=== PATIENT | female | born 1950 | race Caucasian/White ===

== ENCOUNTER 2024-09-14 14:36 | Inpatient (IN) | payer MEDICARE, SELFPAY ==
[2024-09-14] VITALS (11 sets, daily range): BP systolic 94–135; BP diastolic 60–85; BMI 16.8; BMI 15.5
--- NOTE | 2024-09-14 12:45 | EDRN ---
Dr. Hahn in room w/pt.
[2024-09-14] MEDS: SUBLIMAZE 50 MCG IV (12:46)
[2024-09-14 13:07] LABS: % Basophils 0.3 % (0-2); % Eosinophils 0.1 % (0-6); % Immature Granulocytes 0.6 % (0-0.5); % Lymphocytes 4.6 % (20.5-51.1); % Monocytes 4.7 % (1.7-9.3); % Neutrophils 89.7 % (42.2-75.2); Absolute Immature Granulocytes 0.1 10^3/uL (0-0.05); Absolute Lymphocytes 0.7 10^3/uL (1.2-3.4); Absolute Monocytes 0.7 10^3/uL (0.1-0.6); Hematocrit 33.6 % (37.0-47.0); Hemoglobin 11.5 g/dL (12.0-16.0); Mean Corp Hgb Conc. 34.2 g/dL (33.0-37.0); Mean Corpuscular Hgb 33.8 pg (27.0-31.0); Mean Corpuscular Volume 98.8 fL (81.0-99.0); Mean Platelet Volume 8.4 fL (7.4-10.4); Nucleated Red Blood Cells % 0 %; Platelet Count 417 10^3/uL (130-400); Red Cell Dist. Width 12.6 % (11.5-14.5); White Blood Cell Count 15.6 10^3/uL (4.8-10.8)
[2024-09-14 13:19] LABS: ALT (SGPT) 34 U/L (0-35); AST (SGOT) 37 U/L (14-36); Albumin 4.3 g/dl (3.5-5.0); Alkaline Phosphatase 82 U/L (38-126); Blood Urea Nitrogen 36 mg/dl (7-17); Calcium 8.9 mg/dl (8.4-10.2); Carbon Dioxide 25 mmol/L (22-30); Chloride 99 mmol/L (98-107); Glucose 150 mg/dl (70-99); Potassium 3.9 mmol/L (3.5-5.1); Sodium 131 mmol/L (135-145); Total Bilirubin 0.5 mg/dl (0.2-1.3); Total Protein 6.8 g/dl (6.3-8.2); eGFR > 60.00
--- NOTE | 2024-09-14 13:19 | ED.GENMED ---
History of Present Illness
General
Chief Complaint: Fall
Time Seen by Provider: 09/14/24 12:36
History of Present Illness
History of Present Illness:
Patient presents after slip and fall on the ice this morning. States she was on her driveway and did not see the black eyes. She slipped and landed on her left hip and left shoulder. Denies head strike or loss of consciousness. She was able to
stand up and walk inside. Complains of severe pain in the left hip and left shoulder. Denies injuries elsewhere.
Phy Exam
Physical Exam
Physical Exam:
GENERAL APPEARANCE: Frail elderly female in distress from pain
EYES lids/conjunctiva normal
EARS/NOSE/THROAT Mucous membranes moist, uvula midline without oral pharyngeal erythema, exudate or swelling
HEAD/NECK normocephalic atraumatic, neck is supple.
RESPIRATORY respiratory effort normal, speaks in full sentences, no accessory muscle use. Lungs clear to auscultation without rhonchi, wheezes, rales
CARDIAC Regular rate and rhythm, no edema.
ABDOMINAL Soft, ND/NT.
MUSCLES/EXTREMITIES there is swelling and tenderness at the left shoulder with diminished range of motion. She has palpable distal pulses. Sensation is intact throughout the left upper extremity. Distal pulses intact. 5 out of 5 strength
throughout the rest of extremity. Left leg is shortened. There is tenderness at the left hip. No tenderness at the knee or ankle. Palpable pedal pulses. 5 out of 5 dorsi flexion and plantar
SKIN Warm, pink and dry. No rashes
NEUROLOGICAL Speech is clear and appropriate. Normal level of consciousness. 5/5 strength in all extremities.
PSYCH Normal mood and affect. Judgement/competence is appropriate
Course
Orders/Labs/Results
Orders:
Orders
09/14/24 12:36
IV Insert/Care/Rem.- Treatment PRN
09/14/24 12:43
Fentanyl Citrate/Pf [Sublimaze] 50 mcg IV NOW STA
09/14/24 12:44
Fentanyl Citrate/Pf [Sublimaze] 100 mcg .ROUTE .STK-MED ONE
Hip, Left 2-3 Views [CR Hip - LT w/wo Pel 2-3 Vw*] Urgent
Comment:
Reason For Exam: L hip pain
Include a pelvis x-ray?: Yes
Shoulder, Left 2 View CR [CR Shoulder - Left Min 2 View*] Urgent
Comment:
Reason For Exam: fall, injury
09/14/24 12:45
CR Chest Single View Urgent
Reason For Exam: trauma
09/14/24 12:53
Complete Blood Count/With Diff Urgent
Comprehensive Metabolic Panel Urgent
09/14/24 13:23
Sling [Braces/Immobilizers] As Directed
Type of Brace/Immobilizer: Sling
Instructions: LUE
09/14/24 13:43
Electrocardiogram (*1) Urgent
Reason for Study: PreOp
Abnormal Lab Results
09/14/24
12:53
WBC 15.6 H 10^3/uL
(4.8-10.8)
RBC 3.40 L 10^6/uL
(4.20-5.40)
Hgb 11.5 L g/dL
(12.0-16.0)
Hct 33.6 L %
(37.0-47.0)
MCH 33.8 H pg
(27.0-31.0)
Plt Count 417 H 10^3/uL
(130-400)
Abs Immat Gran (auto) 0.1 H 10^3/uL
(0-0.05)
Absolute Neuts (auto) 14.0 H 10^3/uL
(1.4-6.5)
Absolute Lymphs (auto) 0.7 L 10^3/uL
(1.2-3.4)
Absolute Monos (auto) 0.7 H 10^3/uL
(0.1-0.6)
Immature Gran % 0.6 H %
(0-0.5)
Neutrophils % 89.7 H %
(42.2-75.2)
Lymphocytes % 4.6 L %
(20.5-51.1)
Sodium 131 L mmol/L
(135-145)
BUN 36 H mg/dl
(7-17)
Creatinine 0.5 L mg/dL
(0.6-1.0)
Glucose 150 H mg/dl
(70-99)
AST 37 H U/L
(14-36)
09/14/24 12:53
09/14/24 12:53
Vital Signs
Initial and Last Documented VS:
Initial Vital Signs
Temp Pulse Resp BP Pulse Ox
98 F 67 16 114/71 98
09/14/24 12:28 09/14/24 12:28 09/14/24 12:28 09/14/24 12:28 09/14/24 12:28
Last Documented Vital Signs
Temp Pulse Resp BP Pulse Ox
98 F 76 14 123/66 71
09/14/24 12:28 09/14/24 13:45 09/14/24 13:45 09/14/24 13:25 09/14/24 13:30
*Critical Care Note
Total Time (30-74mins, 75-104mins- exclusive of procedures): Not Applicable
ED Attending Note
ED Attending Note
ED Attending Note:
Patient with proximal humerus fracture and hip fracture on the left side after mechanical fall. Closed fractures. Neurovascularly intact. Discussed with orthopedist on-call and admitted to hospitalist.
-
Portions of this chart may have been created with voice recognition software.� Occasional wrong word or��sound alike� substitutions may have occurred due to the inherent limitations of voice recognition software.
Discharge Plan
Departure
Patient Disposition: Admit
Date of Disposition: 09/14/24
Time of Disposition: 13:44
Presentation/result/management discussed w/ accepting MD/DO: Hospitalist
Discharge Problem:
Closed hip fracture, Fracture of proximal end of humerus
Interventions
Interventions:
*General Assessment Last Done: 09/14/24 13:00
ED- Fall Risk Assessment Last Done: 09/14/24 13:00
*ED COVID-19 Vaccine History Last Done: 09/14/24 13:25
ED-Musculoskeletal Assessment Last Done: 09/14/24 13:25
ED- Neurological Assessment Last Done: 09/14/24 13:25
ED-Skin Assessment Last Done: 09/14/24 13:25
Discharge Date and Time
Print Language: FRENCH
--- NOTE | 2024-09-14 13:57 | HPS.HSE ---
Family Physician
-
Family Physician: Nigel Apple
Chief Complaint
-
fall left hip and left shoulder pain
History of Present Illness
73-year-old female who was walking down her driveway this a.m. did not see black ice. She reports slipping and landing on her left hip and shoulder. She denies head injury, LOC. She was able to stand up and walk inside but is having severe pain
in the left hip and shoulder. She denies any other injuries. She spilled hot water 1 week ago on her right hand third ,fourth fingers dorsal aspect that has current scabbed blister castellano
She denies headache, neck pain, blurred vision, fever, chills, chest pain, palpitations, cough, shortness of breath, abdominal pain, nausea, vomiting, diarrhea, urinary symptoms. She has past medical history of active smoker, bilateral wrist
fractures , right hand distal DIP tendon injury as a teen.
Medical History
Past Medical History
Past Medical History: Reports Other
Additional Past Medical History:
Active smoker
History bilateral wrist fracture repairs
History right hand second finger DIP tendon injury
Past Surgical History: Reports Other
Additional Past Surgical History:
History bilateral wrist fracture repairs
Social History
Tobacco: Smoker (1 pack/week)
Alcohol: None
Drug: None
Personal: Single
Living: Alone
Employment: Retired
Family History
Family History: Not pertinent
Allergies / Home Medications
Allergies reflects when Allergies were last updated in [facility].
Home Medications with original date entered in [facility]
Allergy/Medication List:
Allergies
Allergy/AdvReac Type Severity Reaction Status Date / Time
No Known Allergies Allergy Unverified 09/14/24 12:26
Home Medications
[id number]-[id number] 250 mg-250 mg-65 mg tablet (Excedrin Migraine) 2 tab PO BIDPRN PRN headache/mild pain 09/14/24
Review of Systems
-
History Source: Patient
A 12 point ROS was completed and negative except as noted: Yes
Constitutional: Denies Fever or Chills
EENT: Denies Sore Throat or Runny Nose
Respiratory: Denies Cough or Trouble Breathing
Cardiac: Denies Chest Pain, Diaphoresis, Palpitations or Syncope
Abdomen/GI: Denies Abdominal Pain, Nausea, Vomiting, Diarrhea, Constipated, Bloody Stools or Black Stools
: Denies Dysuria, Frequency, Flank Pain, Incontinence, Difficulty Voiding or Urgency
Musculoskeletal: Reports Joint Pain (Left humerus with ecchymosis and swelling lack ROM secondary to fracture, left leg external rotation with tenderness at left hip secondary to femur fracture); Denies Edema
Skin: Reports Other (Right hand dorsal aspect of third and fourth fingers scabbed blistered castellano from 1 week ago); Denies Itching or Rash
Neurological: Denies Dizzy or Headache
Endocrine: Reports No Symptoms
Hematologic/Lymphatic: Reports No Symptoms
Psych: Reports Calm
Physical Exam
Vital Signs
Vital Signs
Temp Pulse Resp BP Pulse Ox
98 F 76 14 123/66 71
09/14/24 12:28 09/14/24 13:45 09/14/24 13:45 09/14/24 13:25 09/14/24 13:30
Physical Exam
General: Conversant and Pain; No Fever or Chills
HEENT: NormoCephalic, Anicteric, PERRLA, [place] Conjunctivae and No Ptosis
Respiratory: Clear; No Wheezes, Rales or Rhonchi
Cardiac: S1/S2 and Regular Rhythm; No Murmur, Rub, Gallop or Peripheral Edema
GI: Soft, Non Tender, Non Distended, Normal Bowel Sounds and No Hepatosplenomegaly
Rectal: Deferred by Provider
Genito-urinary: Deferred by me
Musculoskeletal: No Clubbing, No Cyanosis, Edema, Left Upper Extremity (Left humerus with ecchymosis and swelling lack ROM secondary to fracture,), Edema, Left Lower Extremity ( left leg external rotation with tenderness at left hip secondary to
femur fracture) and No Edema; No Edema, Right Upper Extremity or Edema, Right Lower Extremity
Skin: Warm, Dry and Other (Right hand dorsal aspect third, fourth finger scabbed blisters from 1 week ago); No Rash
Neuro: AO x 3, Nonfocal/grossly intact, Cranial Nerves Intact, No Sensory Deficits and Other (Limited range of motion left arm left leg secondary to fractures); No Slurred Speech, Facial Droop or Tremors
Psych: Calm
Laboratory Results
-
09/14/24 12:53
09/14/24 12:53
Laboratory Results
Total Bilirubin 0.5 mg/dl (0.2-1.3) 09/14/24 12:53
AST 37 U/L (14-36) H 09/14/24 12:53
ALT 34 U/L (0-35) 09/14/24 12:53
Alkaline Phosphatase 82 U/L (38-126) 09/14/24 12:53
Data Reviewed
-
Lab Data: Labs Reviewed by me
Impression/Plan
-
Impression/plan:
Admit to [facility]
#Mechanical fall with proximal left humerus comminuted fracture
-Consult Ortho
-Ice
-Pain control Dilaudid, bowel regimen, Zofran
-N.p.o. after midnight for surgery at 8 AM
X-ray left shoulder:
1. Diffuse osteopenia is noted.
2. There is a comminuted mildly impacted fracture of the neck and head of the proximal left humerus likely including the greater tuberosity. There is no dislocation.
.
# Mechanical fall with proximal left femur fracture
-Consult Ortho
-Bedrest
-Ice, pain control
Hip x-ray left:
1. There is a mildly impacted fracture of the distal neck of the proximal left femur.
2. Diffuse osteopenia is noted.
3. Degenerative changes of both hips and the included portions of the lower lumbar spine are noted. Degenerative changes are also seen about the symphysis pubis.
4. Atherosclerotic vascular soft tissue calcifications are noted.
#History of right hand third fourth fingers with scabbed blister castellano from hot water 1 week ago
#Acute leukocytosis likely reactive
WBC 15.6 with left shift, afebrile 98F, HR 67, 114/71
-Does not appear to have any infectious source or complaints
-Will follow CBC
CXR: No acute cardiopulmonary process
#Anemia�normocytic
Hgb 11.5, MCV 98.8
#Active smoker
-Patient reports smokes approximately 1 pack a week she states she can go a week without smoking does not need a patch
-Cessation advised
DVT prophylaxis
-SCDs
Full code
[2024-09-14] MEDS: DILAUDID 1 MG IV ×2 (14:24→19:17)
--- NOTE | 2024-09-14 14:57 | EDRN ---
Jasmin Pérez orthopedic PA was in room w/ pt at this time. He told me that OR for tomorrow for hip. Pt needs sling for L shoulder and CT.
--- NOTE | 2024-09-14 15:12 | W.PN.UPDATE ---
Update Note
Progress Note Update
Full orthopedic consult dictated:
Dx: Left hip intertrochanteric fracture and left proximal humerus fracture
Plan: Patient is going to require open reduction internal fixation left hip with gamma nail which is scheduled September 15, [address] Workman. For now bedrest and sling left upper extremity. N.p.o. after midnight and Ancef on-call
to operating room. Patient will undergo CT scan of the left shoulder to better delineate fracture. Surgery consent/blood consent signed by patient. Surgical location marked.
[2024-09-14] MEDS: NSS 1000 IV (21:03)
[2024-09-14] MEDS: DILAUDID 0.5 MG IV (22:09)
--- NOTE | 2024-09-14 22:24 | W.PN.UPDATE ---
Update Note
Progress Note Update
Attending addendum
Patient seen independently
73-year-old woman who fell in her driveway this a.m. She denies headache, neck pain, blurred vision, fever, chills, chest pain, palpitations, cough, shortness of breath, abdominal pain, nausea, vomiting, diarrhea, urinary symptoms. She has past
medical history of active smoker, bilateral wrist fractures , right hand distal DIP tendon injury as a teen. Imaging in the ED showed:
CT of arm:
Comminuted impacted fracture of the left proximal humerus.
No evidence for fracture of the glenoid. No evidence for fracture of the clavicle or acromion.
No significant displacement at the acromioclavicular joint.
CXR:
No acute pulmonary process.
Tortuosity of the thoracic aorta likely senescent. If there is a clinical concern for thoracic aortic dissection, suggest CTA Chest.
Fracture of the proximal left humerus detailed on separate concurrent Left shoulder radiograph report.
Hip X-ray:
Mildly impacted fracture, distal neck, proximal femur.
Past Medical History
Active smoker
History bilateral wrist fracture repairs
History right hand second finger DIP tendon injury
Past Surgical History: Reports Other
Additional Past Surgical History:
History bilateral wrist fracture repairs
Physical Exam
General: Conversant and Pain; No Fever or Chills
HEENT: NormoCephalic, Anicteric, PERRLA, [place] Conjunctivae and No Ptosis
Respiratory: Clear; No Wheezes, Rales or Rhonchi
Cardiac: S1/S2 and Regular Rhythm; No Murmur, Rub, Gallop or Peripheral Edema
GI: Soft, Non Tender, Non Distended, Normal Bowel Sounds and No Hepatosplenomegaly
Psych: Calm
Impression/plan:
1. Mechanical fall with proximal left humerus comminuted fracture
-Consult Ortho
-Ice as needed
-Pain control Dilaudid, bowel regimen, Zofran
-N.p.o. after midnight for surgery at 8 AM
Per ortho:
'Patient is going to require open reduction internal fixation left hip with gamma nail which is scheduled September 15, [address] Workman.
For now bedrest and sling left upper extremity.
N.p.o. after midnight and Ancef on-call to operating room.
Patient will undergo CT scan of the left shoulder to better delineate fracture.
Surgery consent/blood consent signed by patient.
Surgical location marked.'
DVT prophylaxis -SCDs
Full code
[2024-09-15] VITALS (15 sets, daily range): BP systolic 89–146; BP diastolic 63–84
[2024-09-15] MEDS: DILAUDID 0.25 MG IV ×2 (00:10→09:55)
[2024-09-15] MEDS: ZOFRAN 4 MG IV (01:46)
[2024-09-15] MEDS: DILAUDID 1 MG IV (01:46)
[2024-09-15] MEDS: OFIRMEV 100 IV (02:38)
--- NOTE | 2024-09-15 05:00 | PTCARENOTE ---
Pt w/ difficulty urinating throughout this RN's shift, no urine output in purwick or brief. Pt bladder scanned for 368mls. ROADS SUPERVISOR notified, bladder scan straight cath orders placed. Pt given dilaudid 1mg (see MAR) and IV Tylenol one time dose. Pt
given some time to attempt to urinate, pt unable to. Bladder scanned again for 402mls. Pt straight cathed for 500mls of clear yellow urine.
[2024-09-15] MEDS: ANCEF 10 IV (08:20)
--- NOTE | 2024-09-15 08:40 | W.PN.UPDATE ---
Update Note
Progress Note Update
Dr. Workman was able to review CT scan of her left shoulder which confirmed comminuted impacted proximal humerus fracture in acceptable alignment. Treatment will be shoulder immobilizer, nonweightbearing, ice and repeat x-ray in 2 weeks. If
displacement surgical intervention may need to be undertaken.
[2024-09-15 08:55] LABS: % Basophils 0.5 % (0-2); % Eosinophils 0.3 % (0-6); % Immature Granulocytes 0.3 % (0-0.5); % Lymphocytes 14.2 % (20.5-51.1); % Monocytes 16.5 % (1.7-9.3); % Neutrophils 68.2 % (42.2-75.2); Absolute Lymphocytes 0.9 10^3/uL (1.2-3.4); Absolute Neutrophils 4.1 10^3/uL (1.4-6.5); Hematocrit 27.9 % (37.0-47.0); Hemoglobin 9.3 g/dL (12.0-16.0); Mean Corp Hgb Conc. 33.3 g/dL (33.0-37.0); Mean Corpuscular Hgb 32.6 pg (27.0-31.0); Mean Corpuscular Volume 97.9 fL (81.0-99.0); Mean Platelet Volume 8.5 fL (7.4-10.4); Nucleated Red Blood Cells % 0 %; Platelet Count 316 10^3/uL (130-400); Red Blood Cell Count 2.85 10^6/uL (4.20-5.40); Red Cell Dist. Width 12.7 % (11.5-14.5); White Blood Cell Count 6.1 10^3/uL (4.8-10.8)
[2024-09-15 09:12] LABS: ALT (SGPT) 26 U/L (0-35); AST (SGOT) 33 U/L (14-36); Albumin 3.3 g/dl (3.5-5.0); Alkaline Phosphatase 65 U/L (38-126); Blood Urea Nitrogen 34 mg/dl (7-17); Calcium 8.2 mg/dl (8.4-10.2); Carbon Dioxide 23 mmol/L (22-30); Chloride 101 mmol/L (98-107); Estimated Creatinine Clearance 59 ml/min; Glucose 99 mg/dl (70-99); Potassium 4.5 mmol/L (3.5-5.1); Sodium 131 mmol/L (135-145); Total Bilirubin 0.8 mg/dl (0.2-1.3); Total Protein 5.7 g/dl (6.3-8.2); eGFR > 60.00
--- NOTE | 2024-09-15 10:40 | W.PN.HOSP.TC ---
Today's Communication/Plan
-
Assessment / Plan
Assessment / Plan
NAD
Scleral Anicteric
MMM
No JVD
CTABL
RRR, S1/S2
Soft, NT, ND, BS+
Warm, Dry
AAOx3
Calm
Left femur fracture sustained after slipping on black ice
-Internal fixation left hip with gamma nail on 09/15
-Comanagement orthopedic
-Pain management per orthopedics
-DVT prophylaxis per orthopedic
-Incentive spirometer
-Ankle pumps
-Allow for PT and OT postoperatively
Left humeral fracture
-Keep in sling
-Outpatient follow-up with orthopedic
-Nonweightbearing
-Repeat x-ray in 2 weeks
-Shoulder immobilizer and ice
Smoker
-NRT
-Cessation advised
Normocytic anemia
-Follow hemoglobin trend
-If less than 7 transfuse
-Likely chronic
-Age-appropriate cancer screening as outpatient
-Outpatient iron studies
Leukocytosis�resolved
-Likely reactive in the setting of fracture/acute inflammatory for
Anticipated Discharge: 24 - 48 hours
Subjective/Interval History
-
Date of Service: September 15, 2024
Seen and examined. No new complaints. No acute overnight events.
Was seen postoperatively
Objective Data
-
Labs:
Laboratory Results
09/15/24
07:44
WBC 6.1
Hgb 9.3 L
Hct 27.9 L
Plt Count 316 D
Sodium 131 L
Potassium 4.5
Chloride 101
Carbon Dioxide 23
BUN 34 H
Creatinine 0.6
Glucose 99
Calcium 8.2 L
Total Bilirubin 0.8
AST 33
ALT 26
Alkaline Phosphatase 65
Vital Signs:
Vital Signs
Temp Pulse Resp BP Pulse Ox
98.1 F 75 14 135/72 100
09/15/24 09:33 09/15/24 09:33 09/15/24 09:33 09/15/24 09:33 09/15/24 09:33
I&O
09/14/24 09/15/24 09/16/24
06:59 06:59 06:59
Intake Total 50 / 50
Output Total 500 / 500
Balance -500 / -500 50 / 50
--- NOTE | 2024-09-15 12:26 | CM ---
Met with patient after surgery on Left hip. She had Left hip gamma nail. She is WBAT on LLE. ON LUE she is wearing an immobilizer and is NWB on LUE.
She reports she lives alone in ranch home. NO steps to enter.
She was independent, drove. SHe mentioned an old walker from her mother.
NO history of VNA or SNF.
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
She does not have a PCP. Will give information on the residency program at to get a PCP.
Pharmacy: [facility].
Discussed she will need to have people come to help her if she wants to go home. She will think about this and wants to see how she does with therapy. She does understand she is NWB on LUE. SHe is right dominant.
Await input from therapy to determine safe discharge.
PLAN:home wit vna or SNF rehab.
[2024-09-15] MEDS: NSS 1000 IV (14:50)
[2024-09-15] MEDS: ANCEF 5 IV (17:07)
[2024-09-15] MEDS: ASPIRIN 325 MG PO (17:07)
[2024-09-15] MEDS: COLACE 100 MG PO (22:33)
[2024-09-15] MEDS: SENOKOT 17.2 MG PO (22:33)
[2024-09-15] MEDS: NSS IV (22:51)
[2024-09-16] VITALS (8 sets, daily range): BP systolic 103–144; BP diastolic 66–94; PULSE 84–85; O2SAT 94
[2024-09-16] MEDS: DILAUDID 0.5 MG IV (00:45)
[2024-09-16] MEDS: ANCEF 5 IV (00:48)
[2024-09-16] MEDS: ROXICODONE 5 MG PO ×3 (04:27→14:32)
[2024-09-16] MEDS: NSS 1000 IV (04:27)
[2024-09-16 06:30] LABS: % Basophils 0.1 % (0-2); % Eosinophils 0.1 % (0-6); % Immature Granulocytes 0.4 % (0-0.5); % Lymphocytes 15.3 % (20.5-51.1); % Monocytes 15.5 % (1.7-9.3); % Neutrophils 68.6 % (42.2-75.2); Absolute Lymphocytes 1.3 10^3/uL (1.2-3.4); Absolute Monocytes 1.3 10^3/uL (0.1-0.6); Absolute Neutrophils 5.7 10^3/uL (1.4-6.5); Hematocrit 22.5 % (37.0-47.0); Hemoglobin 7.8 g/dL (12.0-16.0); Mean Corp Hgb Conc. 34.7 g/dL (33.0-37.0); Mean Corpuscular Hgb 34.2 pg (27.0-31.0); Mean Corpuscular Volume 98.7 fL (81.0-99.0); Mean Platelet Volume 8.6 fL (7.4-10.4); Nucleated Red Blood Cells % 0 %; Platelet Count 259 10^3/uL (130-400); Red Blood Cell Count 2.28 10^6/uL (4.20-5.40); Red Cell Dist. Width 12.5 % (11.5-14.5); White Blood Cell Count 8.4 10^3/uL (4.8-10.8)
[2024-09-16 06:56] LABS: ALT (SGPT) 30 U/L (0-35); AST (SGOT) 44 U/L (14-36); Albumin 3.1 g/dl (3.5-5.0); Alkaline Phosphatase 59 U/L (38-126); Blood Urea Nitrogen 22 mg/dl (7-17); Calcium 7.8 mg/dl (8.4-10.2); Carbon Dioxide 24 mmol/L (22-30); Chloride 104 mmol/L (98-107); Estimated Creatinine Clearance 59 ml/min; Glucose 110 mg/dl (70-99); Potassium 4.3 mmol/L (3.5-5.1); Sodium 134 mmol/L (135-145); Total Bilirubin 0.5 mg/dl (0.2-1.3); Total Protein 5.7 g/dl (6.3-8.2); eGFR > 60.00
[2024-09-16] MEDS: NSS IV ×2 (09:17→16:48)
[2024-09-16] MEDS: COLACE 100 MG PO (09:18)
[2024-09-16] MEDS: ASPIRIN 325 MG PO (09:18)
[2024-09-16] MEDS: SENOKOT 17.2 MG PO (09:18)
--- NOTE | 2024-09-16 10:00 | W.PN.ORTHO ---
Today's Communication / Plan
-
PT/OT
Sling left shoulder currently but Dr. Workman would prefer a shoulder immobilizer so asked her nurse to get this on her
Nonweightbearing left upper extremity
Left lower extremity weightbearing as tolerated
Aspirin/mechanical devices for DVT prophylactics
*Hemoglobin 7.8 observe for now and transfuse if symptomatic*
Skin clip removal 2 weeks postop
X-ray left shoulder 10 to 14 days to check fracture position
X-ray left hip 1 month to check for fracture healing
Suspect patient may need rehab/usp facility
Assessment
.
Distal Motor Intact: Yes
Dressing:
Clean, dry and intact.
Plan
.
Surgery / Date: L hip Gamma Nail2/1 Workman & L prox humerus fx
DVT Prophylaxis: Aspirin
Activity:
Out of bed.
PT/OT
Discharge Plan: Rehab
Subjective
.
.:
Patient relates that she did well overnight. At the moment physical therapy is working with her to stand at the bedside. She is tolerating weightbearing on her left lower extremity while wearing sling on her left upper extremity.
Vital Signs and Labs
.
Vital Signs and Labs:
Lab Results
09/16/24 05:55
09/16/24 05:55
Temp Pulse Resp BP Pulse Ox
99.6 F 82 18 136/77 95
09/16/24 07:35 09/16/24 07:35 09/16/24 07:35 09/16/24 07:35 09/16/24 07:35
Physical Exam
-
Left upper extremity edema with ecchymosis. Shoulder range of motion and strength not assessed secondary to fracture. Distal neurovascular was intact.
--- NOTE | 2024-09-16 10:59 | W.PN.HOSP.TC ---
Today's Communication/Plan
-
Nonweightbearing left upper extremity , X-ray left shoulder in 10 to 14 days for recheck per orthopedic, keep in sling
Weightbearing as tolerated left lower extremity, per orthopedic replete x-ray in 1 month
PT OT
DVT prophylaxis, ASA 325 mg per orthopedics
Follow hemoglobin if symptomatic or less than 7 transfuse
PT Rec ARU
-Consult physiatry
-CM consult for dispo planning
Assessment / Plan
Assessment / Plan
NAD
Scleral Anicteric
MMM
No JVD
CTABL
RRR, S1/S2
Soft, NT, ND, BS+
Warm, Dry, no left groin hematoma noted, no abdominal tenderness no back tenderness
AAOx3
Calm
Left femur fracture sustained after slipping on black ice
-Internal fixation left hip with gamma nail on 09/15
-Comanagement orthopedic
-Pain management per orthopedics
-DVT prophylaxis per orthopedic
-Incentive spirometer
-Ankle pumps
-Allow for PT and OT postoperatively
Left humeral fracture
-Keep in sling
-Outpatient follow-up with orthopedic
-Nonweightbearing
-Repeat x-ray in 2 weeks
-Shoulder immobilizer and ice
Smoker
-NRT
-Cessation advised
Normocytic anemia, trending down 7.6 continue to monitor hemodynamically stable
-Follow hemoglobin trend
-If less than 7 transfuse or symptomatic
-Likely chronic
-Age-appropriate cancer screening as outpatient
-Outpatient iron studies
Leukocytosis�resolved
-Likely reactive in the setting of fracture/acute inflammatory for
Anticipated Discharge: Within 24 hours
Subjective/Interval History
-
Date of Service: September 16, 2024
Seen and examined. No new complaints. No acute overnight events.
No abdominal pain no back pain
Urinating well
No flatus no bowel movement
Objective Data
-
Labs:
Laboratory Results
09/16/24
05:55
WBC 8.4
Hgb 7.8 L
Hct 22.5 L
Plt Count 259
Sodium 134 L
Potassium 4.3
Chloride 104
Carbon Dioxide 24
BUN 22 H
Creatinine 0.5 L
Glucose 110 H
Calcium 7.8 L
Total Bilirubin 0.5
AST 44 H
ALT 30
Alkaline Phosphatase 59
Vital Signs:
Vital Signs
Temp Pulse Resp BP Pulse Ox
99.6 F 82 18 136/77 95
09/16/24 07:35 09/16/24 07:35 09/16/24 07:35 09/16/24 07:35 09/16/24 09:54
I&O
09/15/24 09/16/24 09/17/24
06:59 06:59 06:59
Intake Total 800 / 800
Output Total 500 / 500 1150 / 1150
Balance -500 / -500 -350 / -350
[2024-09-16] MEDS: COLACE PO (20:36)
[2024-09-16] MEDS: SENOKOT PO (20:36)
[2024-09-16] MEDS: ROXICODONE 10 MG PO (20:36)
[2024-09-17] MEDS: ROXICODONE 5 MG PO ×2 (03:40→11:36)
[2024-09-17 06:30] LABS: Hematocrit 24.7 % (37.0-47.0); Hemoglobin 8.2 g/dL (12.0-16.0); Mean Corp Hgb Conc. 33.2 g/dL (33.0-37.0); Mean Corpuscular Hgb 33.2 pg (27.0-31.0); Mean Platelet Volume 8.7 fL (7.4-10.4); Platelet Count 280 10^3/uL (130-400); Red Blood Cell Count 2.47 10^6/uL (4.20-5.40); Red Cell Dist. Width 12.5 % (11.5-14.5); White Blood Cell Count 7.8 10^3/uL (4.8-10.8)
[2024-09-17 06:52] LABS: Blood Urea Nitrogen 19 mg/dl (7-17); Carbon Dioxide 29 mmol/L (22-30); Chloride 99 mmol/L (98-107); Estimated Creatinine Clearance 59 ml/min; Glucose 99 mg/dl (70-99); Sodium 131 mmol/L (135-145); eGFR > 60.00
[2024-09-17 07:05] VITALS: BP 165/87
[2024-09-17] MEDS: ASPIRIN 325 MG PO (08:13)
[2024-09-17] MEDS: SENOKOT PO ×2 (08:17→21:47)
[2024-09-17] MEDS: COLACE PO ×2 (08:17→21:47)
--- NOTE | 2024-09-17 08:43 | W.PN.ORTHO ---
Documented by User: Tom Oneal PA-C 09/17/24 08:49
Today's Communication / Plan
-
Appreciate the primary team, continue Tx
Dispo likely rehab, appreciate CM
Continue WBAT LLE on (platform) walker/assistance
Sling immobilizer to remain LUE. NWB/No lifting LUE
PT/OT
ASA 325mg daily x 4 weeks for DVT ppx
Dressing to remain left thigh 7-10 days
[place] out in 2 weeks (rehab or office)
Recommend outpatient Ortho follow-up in 10-14 days for xrays of the shoulder
Assessment
.
Distal Motor Intact: Yes
Dressing:
Clean, dry and intact. Aquacel in place left thigh
Assessment:
POD#2 Left hip gamma. Also with left proximal humerus Fx
Overall doing/feeling better
Calf soft, nontender
Sling immobilizer in place LUE
Plan
.
Surgery / Date: L hip Gamma Nail 1 Sep & L prox humerus fx
DVT Prophylaxis: Aspirin
Activity:
Out of bed. WBAT LLE. Sling immobilizer LUE
PT/OT
Discharge Plan: Rehab (Appreciate CM)
Subjective
.
.:
Patient resting comfortably. Feeling better this AM compared to yesterday
Vital Signs and Labs
.
Vital Signs and Labs:
Lab Results
09/17/24 05:52
09/17/24 05:52
Temp Pulse Resp BP Pulse Ox
99.1 F 96 17 165/87 95
09/17/24 07:05 09/17/24 07:05 09/17/24 07:05 09/17/24 07:05 09/17/24 07:05

Documented by User: Sarah Workman DO 09/18/24 10:12
Today's Communication / Plan
-
Appreciate the primary team, continue Tx
Dispo likely rehab, appreciate CM
Continue WBAT LLE on (platform) walker/assistance
Sling immobilizer to remain LUE. NWB/No lifting LUE
PT/OT
ASA 325mg daily x 4 weeks for DVT ppx
Dressing to remain left thigh 7-10 days
Recommend outpatient Ortho follow-up in 10-14 days for xrays of the shoulder
--- NOTE | 2024-09-17 10:51 | W.PN.HOSP.TC ---
Today's Communication/Plan
-
Medically stable for discharge pending rehab placement. PMR consulted. CM aware.
Assessment / Plan
Assessment / Plan
Exam:
NAD
Scleral Anicteric
MMM
No JVD
CTABL
RRR, S1/S2
Soft, NT, ND, BS+
Warm, Dry, no left groin hematoma noted, no abdominal tenderness no back tenderness
AAOx3
Calm
Left femur fracture sustained after slipping on black ice
-Internal fixation left hip with gamma nail on 09/15
-Comanagement orthopedic
-Pain management per orthopedics
-DVT prophylaxis per orthopedic
-Incentive spirometer
-Ankle pumps
-PT/OT evaluated; acute rehab consulted
Left humeral fracture
-Keep in sling
-Outpatient follow-up with orthopedic
-Nonweightbearing
-Repeat x-ray in 2 weeks
-Shoulder immobilizer and ice
Smoker
-NRT
-Cessation advised
Normocytic anemia, trending down 7.6 continue to monitor hemodynamically stable
-Follow hemoglobin trend
-If less than 7 transfuse or symptomatic
-Likely chronic
-Age-appropriate cancer screening as outpatient
-Outpatient iron studies
Leukocytosis�resolved
-Likely reactive in the setting of fracture/acute inflammatory for
DVT ppx: per orthopedics, aspirin
Code: Full
Anticipated Discharge: > 48 hours
Subjective/Interval History
-
Date of Service: September 17, 2024
no new complaints
Objective Data
-
Labs:
Laboratory Results
09/17/24
05:52
WBC 7.8
Hgb 8.2 L
Hct 24.7 L
Plt Count 280
Sodium 131 L
Potassium 4.0
Chloride 99
Carbon Dioxide 29
BUN 19 H
Creatinine 0.5 L
Glucose 99
Calcium 8.0 L
Vital Signs:
Vital Signs
Temp Pulse Resp BP Pulse Ox
99.1 F 96 17 165/87 95
09/17/24 07:05 09/17/24 07:05 09/17/24 07:05 09/17/24 07:05 09/17/24 07:05
I&O
09/16/24 09/17/24 09/18/24
06:59 06:59 06:59
Intake Total 800 / 800 500 / 500
Output Total 1150 / 1150 700 / 700
Balance -350 / -350 -200 / -200
Data Reviewed
-
Total Time Spent with Patient (in minutes): 41
Labs: Labs Reviewed by me
[2024-09-17 11:34] VITALS: BP 76/54; BP 77/50; BP 92/53; PULSE 107; O2SAT 90
[2024-09-17 11:42] VITALS: BP 109/57; BP 76/54; BP 92/53; O2SAT 90
--- NOTE | 2024-09-17 11:45 | CM ---
Addendum entered by Brionna Wright 09/17/24 15:04:
No beds at [facility] today, patient declined referral to [facility] rehab, no beds at acute rehab. CM will send referral to [facility] at patient request. Patient considering referral to [facility] rehab. CM will continue to follow for discharge planning needs.
Addendum entered by Brionna Wright 09/17/24 14:40:
Consult sent to [place] over weekend, no response as of yet. CM sent tt to liaison x2. Await PM&R assessment.
Original Note:
Patient seen at bedside. Patient on O2 and expressed that therapy said she needed O2. Patient stated that she only has MC and no supplemental. Patient expressed intrest in [place] and await response from PM&R. CM will continue to follow for discharge
planning needs.
Plan; SNF vs Acute Rehab
--- NOTE | 2024-09-17 13:04 | PN.CDI ---
CDI
- -
CDI:
Physician Documentation Request
Admit Date: 09/14/24 14:36
Dear Doctor Dima,
Clinical Indicators:
Patient admitted with Left femur fracture & Left humeral fracture; s/p ORIF left hip with gamma nail 09/14.
Pain scale ratings: 1- 7
Sodium levels:
09/14/24 09/15/24 09/17/24
12:53 07:44 05:52
Sodium 131 L 131 L 131 L
Based on the above, could you clarify in the progress notes, the appropriate diagnosis, if significant, that supports the above abnormalities and additional evaluation, monitoring and/or treatment rendered:
Hyponatremia
Abnormal lab values, clinically insignificant
Other
Use of terms such as suspected, likely, concern for, or probable (associated with a specific diagnosis that is being evaluated, monitored, or treated as if it exists) are acceptable and can be coded in the inpatient setting, when documented at the
time of discharge.
Thank you,
Sil Shah RN BSN
CDI Specialist
available via tiger text
Please use your independent medical judgment in providing your response.
--- NOTE | 2024-09-17 13:16 | PN.CDI ---
CDI
- -
CDI:
Physician Documentation Request
Admit Date: 09/14/24 14:36
Dear Doctor Dima,
Clinical Indicators:
Patient admitted with Left femur fracture & Left humeral fracture; s/p ORIF left hip with gamma nail 09/14.
Height: 5 ft 7 in
Weight: 98 lbs 11 oz
BMI: 15.5
If possible, please provide an associated diagnosis related to the abnormal BMI ( < or = to 19) such as:
Underweight
Cachectic
BMI is not significant
Other
Use of terms such as suspected, likely, concern for, or probable (associated with a specific diagnosis that is being evaluated, monitored, or treated as if it exists) are acceptable and can be coded in the inpatient setting, when documented at the
time of discharge.
Thank you,
Sil Shah RN BSN
CDI Specialist
available via tiger text
Please use your independent medical judgment in providing your response.
[2024-09-17 15:05] VITALS: BP 130/78
[2024-09-17] MEDS: TYLENOL 650 MG PO (15:59)
[2024-09-17 18:09] LABS: COVID-19 Antigen Positive (Negative)
[2024-09-17] MEDS: ROXICODONE 10 MG PO (21:48)
[2024-09-17 23:00] VITALS: BP 131/75
--- NOTE | 2024-09-18 05:39 | W.PN.ORTHO ---
Documented by User: Surjit Lees PA-C 09/18/24 05:48
Today's Communication / Plan
-
73-year-old female POD 3 left hip gamma nail. Patient also with left proximal humerus fracture being managed nonoperatively.
- Appreciate the primary team, continue Tx.
- Dispo likely rehab, appreciate CM.
- Continue WBAT LLE on (platform) walker/assistance.
- Sling immobilizer to remain LUE. NWB/No lifting LUE.
- PT/OT.
- ASA 325mg daily x 4 weeks for DVT ppx.
- Hgb pending this AM. Continue to monitor.
- Dressing to remain left thigh 7-10 days.
- [place] out in 2 weeks (rehab or office).
- Recommend outpatient Ortho follow-up in 10-14 days for x-rays of the shoulder.
- Orthopedic surgery will sign off at this time. Please reengage with any further questions or concerns.
Assessment
.
Distal Motor Intact: Yes
Dressing:
Clean, dry and intact.
Assessment:
POD#3 Left hip gamma. Also with left proximal humerus Fx
Overall doing/feeling better
Calf soft, nontender
Sling immobilizer in place LUE
Plan
.
Surgery / Date: L hip Gamma Nail 1 Sep & L prox humerus fx
DVT Prophylaxis: Aspirin
Activity:
Out of bed.
WBAT LLE. Sling immobilizer LUE.
PT/OT
Discharge Plan: Other
Discharge Information:
Appreciate CM
Subjective
.
.:
Patient resting comfortably. Endorses gradual progress. Denies any new complaints or concerns at this time.
Vital Signs and Labs
.
Vital Signs and Labs:
Temp Pulse Resp BP Pulse Ox
99.4 F 90 20 131/75 97
09/17/24 23:00 09/17/24 23:00 09/17/24 23:00 09/17/24 23:00 09/17/24 23:00

Documented by User: Sarah Workman, 09/18/24 10:05
Today's Communication / Plan
-
73-year-old female POD 3 left hip gamma nail. Patient also with left proximal humerus fracture being managed nonoperatively.
- Appreciate the primary team, continue Tx.
- Dispo likely rehab, appreciate CM.
- Continue WBAT LLE on (platform) walker/assistance.
- Sling immobilizer to remain LUE. NWB/No lifting LUE.
- PT/OT.
- ASA 325mg daily x 4 weeks for DVT ppx.
- Hgb pending this AM. Continue to monitor.
- Dressing to remain left thigh 7-10 days.
- Recommend outpatient Ortho follow-up in 10-14 days for x-rays of the shoulder.
- Orthopedic surgery will sign off at this time. Please reengage with any further questions or concerns.
[2024-09-18 06:36] LABS: Hematocrit 23.6 % (37.0-47.0); Hemoglobin 7.9 g/dL (12.0-16.0); Mean Corp Hgb Conc. 33.5 g/dL (33.0-37.0); Mean Corpuscular Hgb 33.5 pg (27.0-31.0); Mean Platelet Volume 8.7 fL (7.4-10.4); Platelet Count 284 10^3/uL (130-400); Red Blood Cell Count 2.36 10^6/uL (4.20-5.40); Red Cell Dist. Width 12.5 % (11.5-14.5); White Blood Cell Count 5.3 10^3/uL (4.8-10.8)
[2024-09-18 07:05] LABS: Blood Urea Nitrogen 19 mg/dl (7-17); Calcium 7.6 mg/dl (8.4-10.2); Carbon Dioxide 29 mmol/L (22-30); Chloride 97 mmol/L (98-107); Estimated Creatinine Clearance 59 ml/min; Glucose 102 mg/dl (70-99); Potassium 4.1 mmol/L (3.5-5.1); Sodium 131 mmol/L (135-145); eGFR > 60.00
[2024-09-18 07:20] VITALS: BP 142/76
[2024-09-18] MEDS: COLACE PO ×2 (08:08→21:07)
[2024-09-18] MEDS: SENOKOT PO ×2 (08:08→21:07)
[2024-09-18] MEDS: ASPIRIN 325 MG PO (08:09)
--- NOTE | 2024-09-18 08:34 | CM ---
Addendum entered by Brionna Wright 09/18/24 15:30:
[facility] would have next available bed on pending medical stability. Physician updated and is aware of plan. CM will continue to follow for discharge planning needs.
Plan; SNF [facility] first available bed if patient medically appropriate.
Original Note:
Patient now with COVID. CM will continue to work on bed availability. No beds at [facility] today. CM left for admissions liaison with [facility], await call back. CM will continue to follow for discharge planning needs.
Plan;SNF vs acute rehab.
[2024-09-18 08:37] LABS: Urine Albumin 1+ (Neg - Trace); Urine Bilirubin Negative (Negative); Urine Character Clear (Clear); Urine Color Yellow; Urine Glucose Negative (Negative); Urine Ketone Negative (Negative); Urine Leukocyte Negative (Negative); Urine Nitrite Negative (Negative); Urine Occult Blood 2+ (Negative); Urine Urobilinogen Negative (Neg - 1+)
[2024-09-18 08:46] LABS: Urine White Cell 0-2 /HPF (0-5)
--- NOTE | 2024-09-18 09:34 | W.PN.HOSP.TC ---
Today's Communication/Plan
-
start steroids, Remdesivir
monitor O2
dc planning to rehab when medically stable
Assessment / Plan
Assessment / Plan
Exam:
Assessment:
Acute hypoxic respiratory insufficiency on 2L NC
Acute COVID-19 infection
- CXR clear; can repeat if clinical status changes
- given symptomatic SOB, hypoxia; will start IV Steroids (ok with ortho service) + Remdesivir
- Tylenol for fevers
Left femur fracture sustained after slipping on black ice
-Internal fixation left hip with gamma nail on 09/15
-Comanagement orthopedic
-Pain management per orthopedics
-DVT prophylaxis per orthopedic
-Incentive spirometer
-Ankle pumps
-PT/OT evaluated; acute rehab consulted
Left humeral fracture
-Keep in sling
-Outpatient follow-up with orthopedic
-Nonweightbearing
-Repeat x-ray in 2 weeks
-Shoulder immobilizer and ice
Smoker
-NRT
-Cessation advised
Normocytic anemia, trending down 7.6 continue to monitor hemodynamically stable
-Follow hemoglobin trend
-If less than 7 transfuse or symptomatic
-Likely chronic
-Age-appropriate cancer screening as outpatient
-Outpatient iron studies
Leukocytosis�resolved
-Likely reactive in the setting of fracture/acute inflammatory
Underweight nutritional status
Hyponatremia, mild
- monitor - likely from +COVID status, pain from fractures
- consider fluid restriction if lower in AM
DVT ppx: per orthopedics, aspirin
Code: Full
Anticipated Discharge: > 48 hours
Subjective/Interval History
-
Date of Service: September 18, 2024
patient with COVID discovered yesterday with afternoon fever
reports some generalized malaise, mild SOB
88% on RA, O2 started
Objective Data
-
Labs:
Laboratory Results
09/18/24
06:14
WBC 5.3
Hgb 7.9 L
Hct 23.6 L
Plt Count 284
Sodium 131 L
Potassium 4.1
Chloride 97 L
Carbon Dioxide 29
BUN 19 H
Creatinine 0.5 L
Glucose 102 H
Calcium 7.6 L
Vital Signs:
Vital Signs
Temp Pulse Resp BP Pulse Ox
99.0 F 88 18 142/76 96
09/18/24 07:20 09/18/24 07:20 09/18/24 07:20 09/18/24 07:20 09/18/24 07:20
I&O
09/17/24 09/18/24 09/19/24
06:59 06:59 06:59
Intake Total 500 / 500 1260 / 1260 240 / 240
Output Total 700 / 700
Balance -200 / -200 1260 / 1260 240 / 240
Physical Exam
-
General: Respiratory Distress (mild)
HEENT: Normocephalic and Atraumatic
Respiratory: Decreased Breath Sounds; Negative Wheezes
Cardiac: Regular Rhythm and S1/S2
GI: Nondistended
Genito-urinary: No Costovertebral Tender
Neuro: AO x 3
Psych: Calm
Data Reviewed
-
Total Time Spent with Patient (in minutes): 46
Labs: Labs Reviewed by me
[2024-09-18 13:06] VITALS: BP 112/78; BP 113/72; BP 118/70; PULSE 89; O2SAT 96
[2024-09-18] MEDS: ROXICODONE 10 MG PO ×2 (13:12→20:47)
[2024-09-18 14:33] VITALS: BP 112/78; BP 113/72; BP 118/70; PULSE 89; O2SAT 96
[2024-09-18 15:00] VITALS: BP 136/72
[2024-09-18] MEDS: DECADRON 6 MG IV (15:28)
[2024-09-18] MEDS: VEKLURY 250 MG IV (15:28)
[2024-09-18 23:00] VITALS: BP 119/66
[2024-09-19] MEDS: TYLENOL 650 MG PO (04:44)
[2024-09-19 07:22] VITALS: BP 142/78
[2024-09-19] MEDS: COLACE PO ×2 (08:06→20:20)
[2024-09-19] MEDS: SENOKOT PO ×2 (08:06→20:20)
[2024-09-19] MEDS: ASPIRIN 325 MG PO (08:06)
[2024-09-19 08:41] LABS: Hematocrit 24.6 % (37.0-47.0); Hemoglobin 8.3 g/dL (12.0-16.0); Mean Corp Hgb Conc. 33.7 g/dL (33.0-37.0); Mean Corpuscular Hgb 32.8 pg (27.0-31.0); Mean Corpuscular Volume 97.2 fL (81.0-99.0); Mean Platelet Volume 8.8 fL (7.4-10.4); Platelet Count 341 10^3/uL (130-400); Red Blood Cell Count 2.53 10^6/uL (4.20-5.40); Red Cell Dist. Width 12.4 % (11.5-14.5); White Blood Cell Count 4.2 10^3/uL (4.8-10.8)
[2024-09-19 08:54] LABS: Blood Urea Nitrogen 25 mg/dl (7-17); Calcium 8.1 mg/dl (8.4-10.2); Carbon Dioxide 24 mmol/L (22-30); Chloride 99 mmol/L (98-107); Estimated Creatinine Clearance 59 ml/min; Glucose 105 mg/dl (70-99); Potassium 4.6 mmol/L (3.5-5.1); Sodium 133 mmol/L (135-145); eGFR > 60.00
--- NOTE | 2024-09-19 11:01 | W.PN.HOSP.TC ---
Today's Communication/Plan
-
Monitor vital signs see plan
Continue with remdesivir, Decadron
Wean oxygen as tolerated
Will need rehab
Assessment / Plan
Assessment / Plan
Exam:
Assessment:
Acute hypoxic respiratory insufficiency on 2L NC
Acute COVID-19 infection
- given symptomatic SOB, hypoxia; will start IV Steroids (ok with ortho service) + Remdesivir. Wean oxygen as tolerated. Chest x-ray concerning for COPD.
- Tylenol for fevers
Left femur fracture sustained after slipping on black ice
-Internal fixation left hip with gamma nail on 09/15
-Comanagement orthopedic
-Pain management per orthopedics
-DVT prophylaxis per orthopedic
-Incentive spirometer
-Ankle pumps
-PT/OT evaluated; acute rehab consulted
Left humeral fracture
-Keep in sling
-Outpatient follow-up with orthopedic
-Nonweightbearing
-Repeat x-ray in 2 weeks
-Shoulder immobilizer and ice
Smoker
-NRT
-Cessation advised
Normocytic anemia, trending down 7.6 continue to monitor hemodynamically stable
-Follow hemoglobin trend
-If less than 7 transfuse or symptomatic
-Likely chronic
-Age-appropriate cancer screening as outpatient
-Outpatient iron studies
Leukocytosis�resolved
-Likely reactive in the setting of fracture/acute inflammatory
Underweight nutritional status
Hyponatremia, mild
- monitor - likely from +COVID status, pain from fractures
- consider fluid restriction if lower in AM
DVT ppx: per orthopedics, aspirin
Code: Full
General: No respiratory distress
HEENT: Normocephalic and Atraumatic
Respiratory: Decreased Breath Sounds; Negative Wheezes
Cardiac: Regular Rhythm and S1/S2
GI: Nondistended
Genito-urinary: No Costovertebral Tender
Neuro: AO x 3
Psych: Calm
Anticipated Discharge: 24 - 48 hours
Subjective/Interval History
-
Date of Service: September 19, 2024
Denies nausea
Objective Data
-
Labs:
Laboratory Results
09/19/24
08:03
WBC 4.2 L
Hgb 8.3 L
Hct 24.6 L
Plt Count 341 D
Sodium 133 L
Potassium 4.6
Chloride 99
Carbon Dioxide 24
BUN 25 H
Creatinine 0.5 L
Glucose 105 H
Calcium 8.1 L
Vital Signs:
Vital Signs
Temp Pulse Resp BP Pulse Ox
98.6 F 74 17 142/78 94
09/19/24 07:22 09/19/24 07:22 09/19/24 07:22 09/19/24 07:22 09/19/24 08:09
I&O
09/18/24 09/19/24 09/20/24
06:59 06:59 06:59
Intake Total 1260 / 1260 1330 / 1330 120 / 120
Balance 1260 / 1260 1330 / 1330 120 / 120
[2024-09-19] MEDS: VEKLURY 250 MG IV (12:20)
[2024-09-19] MEDS: ROXICODONE 5 MG PO ×2 (12:26→20:23)
[2024-09-19] MEDS: DECADRON 6 MG IV (14:27)
[2024-09-19 15:15] VITALS: BP 129/73
[2024-09-19 15:57] VITALS: BP 129/73; PULSE 81; O2SAT 95
[2024-09-19 16:10] VITALS: BP 129/73; PULSE 81; O2SAT 95
--- NOTE | 2024-09-19 17:30 | CON.MD ---
Documented by User: Henny Alberto PA-C 09/19/24 17:35
Consultation - Medical
-
Referring Provider: Syed Carballo
Chief Complaint: Ambulatory dysfunction status post hip ORIF
History of Present Illness: Patient is a 73-year-old female smoker who presented to the hospital after sustaining a fall on her patio landing on her left side. X-ray of the left shoulder revealed impacted fracture involving the left proximal
humerus and x-ray of the left hip showed intertrochanteric fracture. On 09/15/2024, she underwent internal fixation left hip with gamma nail by Dr. Workman.
Past Medical History: Active smoker, h/o Bilateral wrist fracture and right hand second finger DIP tendon injury
Procedure History: Bilateral wrist fracture repairs , right hand second finger DIP tendon injury
Family History: non contributory
Social History:
Functional Level Premorbidly: Independent with all activities , very active
Functional Level Currently: Bed mobility�max assist, transfer�mod�max assist, ambulated 2�3 sidesteps to HOB with max assist x 2 with hemiwalker and gait belt, grooming�max assist, upper extremity self-care�max assist, bed mobility�min assist,
Tobacco: Denies
Alcohol: Denies
Drug use: Denies
Lives with: Alone, has girlfriends that are not far from her
24-hour assistance available:
Number of floors: One-story home, [place]
# steps to enter: none , enters through side of house
# steps to second floor:
Potential First floor set up:
Driving: yes
Occupation: retired
Allergies:
Allergy/AdvReac Type Severity Reaction Status Date / Time
No Known Allergies Allergy Unverified 09/14/24 12:26
Review of Systems:
Constitutional: (x) Normal _
Eye: (x) Normal _
Ear/Nose/Throat: (x) Normal _
Respiratory: (x) abNormal _ COVID, hypoxia
Cardiovascular: (x) Normal _
Gastrointestinal: (x) Normal _
Genitourinary: (x) Normal _
Musculoskeletal: (x) abNormal _fx left hip and humerus
Integumentary: (x) Normal _
Neurologic: (x) Normal _
Psychiatric: (x) Normal _
Endocrine: (x) Normal _
Hematologic/Lymphatic: (x) Normal _
Allergic/Immunologic: (x) Normal _
Medications:
Active Current Visit Medication List
Category Date Time Status
Acetaminophen [Tylenol] Med 09/15/24 08:43 Active
650 mg PO Q4HPRN PRN
Aspirin Med 09/15/24 18:00 Active
325 mg PO DAILY
Bisacodyl [Dulcolax] Med 09/14/24 19:36 Active
10 mg RECTAL [id number] PRN
Dexamethasone Sod Phosphate [Decadron] Med 09/18/24 15:00 Active
6 mg IV Q24H
Docusate Sodium [Colace] Med 09/15/24 20:00 Active
100 mg PO BID
Docusate W/Senna [Senokot-S] Med 09/14/24 19:36 Active
1 tablet PO BIDPRN PRN
Flush (0.9% Sodium Chloride) [Flush (Nss)] Med 09/14/24 16:00 Active
See Dose Instructions IV PER PROTOCOL
HYDROmorphone [Dilaudid] Med 09/14/24 19:36 Active
0.25 mg IV Q3HPRN PRN
HYDROmorphone [Dilaudid] Med 09/14/24 19:36 Active
0.5 mg IV Q4HPRN PRN
HYDROmorphone [Dilaudid] Med 09/14/24 19:15 Active
1 mg IV Q4HPRN PRN
Mag Hydrox/Al Hydrox/Simeth [Maalox] Med 09/15/24 08:43 Active
30 ml PO Q4HPRN PRN
Ondansetron Injectable [Zofran] Med 09/14/24 19:36 Active
4 mg IV Q6HPRN PRN
Oxycodone [Roxicodone] Med 09/15/24 08:43 Active
10 mg PO Q4HPRN PRN
Oxycodone [Roxicodone] Med 09/15/24 08:43 Active
5 mg PO Q4HPRN PRN
Polyethylene Glycol Powder [Miralax] Med 09/14/24 19:36 Active
17 grams PO DAILYPRN PRN
Remdesivir [Veklury] 100 mg Med 09/19/24 12:00 Active
0.9% Sodium Chloride 250 ml [Nss] 230 ml
IV DAILY@1200
Sennosides [Senokot] Med 09/15/24 20:00 Active
17.2 mg PO BID
Vitals:
Temp Pulse Resp BP Pulse Ox
98.6 F 74 17 142/78 94
09/19/24 07:22 09/19/24 07:22 09/19/24 07:22 09/19/24 07:22 09/19/24 08:09
Height 5 ft 7 in
Actual Weight 44.77 kg
Body Mass Index (BMI) 15.5
Physical Exam:
General Appearance/Observation: Well-developed, well-nourished individual in no apparent distress.
Pain/Comfort Assessment: Denies at the moment
Mood/Affect: Appropriate
Integumentary/Operative Site: left hip and side of left knee
Pressure Ulcer Evaluation: absent over heels. dry, linear fissure on plantar aspect of both feet
Other Type of Wound: absent
Eyes: Conjunctiva/Lids: normal Pupils: pupils equal round and reactive to light and Accommodation
Ears/Nose/Throat: oral mucosa moist, throat clear. Lips/Teeth/Gums: normal
Neck: No muscle spasm or tenderness
Cardiovascular: Heart: regular, no murmur
Pulses: dorsalis pedis 2+ bilaterally
Respiratory: Respiratory Effort/Chest Expansion: normal Auscultation: Clear to auscultation bilaterally
Gastrointestinal: abdomen not tender, no distension, normal abdominal bowel sounds
Genitourinary: No Ornelas
Extremities: Edema: None Cyanosis: None Trophic changes: None
Neurology Exam:
Orientation: Alert, Oriented to self, Time, Place
Memory: Intact immediately and at 3 minutes
Comprehension: Intact
Two step command: Intact
Naming: Intact
Cranial Nerves:
CNII: Pupillary light reflex: Intact Visual Field: Intact
CN III, IV, : Extraocular muscles: Intact
CN V: Facial Sensation at Forehead: Intact, Maxilla: Intact, Mandible: Intact
CN VII: Facial movement: Symmetric
CN VIII: Hearing: Normal
CN IX/X: Speech & swallow: Normal, Position of Uvula: Midline
CN XI: Shoulder shrug: Symmetric
CN XII: Tongue protrusion: Midline
Sensory:
Light touch: Intact in bilateral upper and lower extremities
Reflexes:
Biceps: 2+ bilaterally
Brachioradialis: 2+ bilaterally
Triceps: 2+ bilaterally
Patellar: 4+ bilaterally
Achilles: 4+ bilaterally
Babinski: Down going bilaterally
Clonus: None
Lorena: Negative bilaterally
Cerebellar: Dysmetria/Ataxia: None
Musculoskeletal:
Motor: (Manual muscle scale 0-5)
Muscle SA EF WE EE FF FA HF KE DF EHL PF
Right 5 5 5 5 5 5 5 5 5 5 5
Left - NT NT NT 4 - 2 2 5 5 5
- LUE in sling.
Tone: Normal in all extremities
Range of Motion: Passively within normal limits in all extremities , LUE deferred, LLE not tested due to surgery
Lab Results:
Labs
WBC 4.2 10^3/uL (4.8-10.8) L 09/19/24 08:03
RBC 2.53 10^6/uL (4.20-5.40) L 09/19/24 08:03
Hgb 8.3 g/dL (12.0-16.0) L 09/19/24 08:03
Hct 24.6 % (37.0-47.0) L 09/19/24 08:03
MCV 97.2 fL (81.0-99.0) 09/19/24 08:03
MCH 32.8 pg (27.0-31.0) H 09/19/24 08:03
MCHC 33.7 g/dL (33.0-37.0) 09/19/24 08:03
RDW 12.4 % (11.5-14.5) 09/19/24 08:03
Plt Count 341 10^3/uL (130-400) D 09/19/24 08:03
MPV 8.8 fL (7.4-10.4) 09/19/24 08:03
Abs Immat Gran (auto) 0.0 10^3/uL (0-0.05) 09/16/24 05:55
Absolute Neuts (auto) 5.7 10^3/uL (1.4-6.5) 09/16/24 05:55
Absolute Lymphs (auto) 1.3 10^3/uL (1.2-3.4) 09/16/24 05:55
Absolute Monos (auto) 1.3 10^3/uL (0.1-0.6) H 09/16/24 05:55
Absolute Eos (auto) 0.0 10^3/uL (0-0.7) 09/16/24 05:55
Absolute Basos (auto) 0.0 10^3/uL (0-0.2) 09/16/24 05:55
Immature Gran % 0.4 % (0-0.5) 09/16/24 05:55
Neutrophils % 68.6 % (42.2-75.2) 09/16/24 05:55
Lymphocytes % 15.3 % (20.5-51.1) L 09/16/24 05:55
Monocytes % 15.5 % (1.7-9.3) H 09/16/24 05:55
Eosinophils % 0.1 % (0-6) 09/16/24 05:55
Basophils % 0.1 % (0-2) 09/16/24 05:55
Nucleated RBC % 0 % 09/16/24 05:55
Sodium 133 mmol/L (135-145) L 09/19/24 08:03
Potassium 4.6 mmol/L (3.5-5.1) 09/19/24 08:03
Chloride 99 mmol/L (98-107) 09/19/24 08:03
Carbon Dioxide 24 mmol/L (22-30) 09/19/24 08:03
BUN 25 mg/dl (7-17) H 09/19/24 08:03
Creatinine 0.5 mg/dL (0.6-1.0) L 09/19/24 08:03
Estimated Creat Clear 59 ml/min 09/19/24 08:03
eGFR > 60.00 09/19/24 08:03
Glucose 105 mg/dl (70-99) H 09/19/24 08:03
Calcium 8.1 mg/dl (8.4-10.2) L 09/19/24 08:03
Total Bilirubin 0.5 mg/dl (0.2-1.3) 09/16/24 05:55
AST 44 U/L (14-36) H 09/16/24 05:55
ALT 30 U/L (0-35) 09/16/24 05:55
Alkaline Phosphatase 59 U/L (38-126) 09/16/24 05:55
Total Protein 5.7 g/dl (6.3-8.2) L 09/16/24 05:55
Albumin 3.1 g/dl (3.5-5.0) L 09/16/24 05:55
Urine Color Yellow 09/18/24 08:10
Urine Clarity Clear (Clear) 09/18/24 08:10
Urine pH 7.0 (5.0-9.0) 09/18/24 08:10
Ur Specific [place] 1.010 (<1.030) 09/18/24 08:10
Urine Ketones Negative (Negative) 09/18/24 08:10
Ur Occult Blood Reflex 2+ (Negative) A 09/18/24 08:10
Urine Nitrite (Reflex) Negative (Negative) 09/18/24 08:10
Urine Bilirubin Negative (Negative) 09/18/24 08:10
Urine Urobilinogen Negative (Neg - 1+) 09/18/24 08:10
Leukocyte Esterase Rfl Negative (Negative) 09/18/24 08:10
Urine RBC 3-6 /HPF (0-2) A 09/18/24 08:10
Urine WBC (Reflex) 0-2 /HPF (0-5) 09/18/24 08:10
Ur Squamous Epith Cells 3-5 /LPF (Few) 09/18/24 08:10
Urine Glucose Negative (Negative) 09/18/24 08:10
Urine Albumin (Reflex) 1+ (Neg - Trace) A 09/18/24 08:10
SARS-CoV-2 Antigen Positive (Negative) A 09/17/24 17:21
Blood Type A POS 09/14/24 16:23
Blood Type Confirm A POS 09/14/24 17:09
Antibody Screen Negative (Negative) 09/14/24 16:23
Diagnostic Results: as per HPI
Assessment: 73-year-old female smoker with left femur and humeral fractures after fall s/p left hip ORIF and left shoulder sling with ambulatory and ADL dysfunction
Plan
PM&R PT/OT to increase independence with ADLs, improve balance, coordination, endurance, strength, mobility, community reintegration, decreased burden of care on others and family education.
Ambulatory dysfunction/status post ORIF of left hip: PT/OT
Left femur fracture sustained after slipping on black ice. s/p orif on 09/[address] Workman
Continue WBAT LLE on (platform) walker/assistance
Dressings to remain left thigh 7-10 days
Daisha out in 2 weeks (rehab or office)
Left humeral fracture:
Sling immobilizer to remain LUE. NWB/No lifting LUE
Outpatient Ortho follow-up in 10-14 days for xrays of the shoulder
-Nonweightbearing
-Shoulder immobilizer and ice
Hyponatremia: likely from +COVID status, pain from fractures. Consider fluid restriction if lower in AM
Acute COVID-19/Acute hypoxic respiratory insufficiency- on 2L NC
CXR clear; can repeat if clinical status changes
given symptomatic SOB, hypoxia; started on IV Steroids (ok with ortho service) + Remdesivir
Tylenol for fevers
Anemia: Likely multifactorial. Continue to monitor.
Psych: Psychology consult. Monitor mood, adjust medications as needed.
Skin: monitor for pressure sores/rashes/lesions.
Pain: acetaminophen or oxycodone as needed. IV Dilaudid 1 mg every 4 as needed
Bowel: Colace and Senna, PRN bisacodyl. MiraLAX
Bladder: Time void, PVRs, PRN straight cath.
Tobacco Abuse: Smoking cessation counseling. Need to find out why smoking whether it is nicotine withdrawal, habit, or oral fixation.
GI Prophylaxis: Pantoprazole
DVT Prophylaxis: Aspirin 325 mg x 4 weeks per orthopedic protocol
Pulmonary: Incentive spirometry
Safety: Continue to reinforce assistance with all transfers.
Code Status: Full code
Dispo (date/plan/equipment needs): Home with family care. Social history reviewed.
Functional and Medical Goals: Modified Independent with ADL�s, ambulation, transfers
Discharge Destination: Acute inpatient rehabilitation
Summary of recommendations: Patient with ambulatory dysfunction and ADL impairment due to left upper and left lower extremity fractures would benefit from PT/OT to increase independence with ADLs, improve balance, coordination, endurance, strength,
mobility, community reintegration.
Ambulatory dysfunction/status post ORIF of left hip: PT/OT
Acute COVID-19/Acute hypoxic respiratory insufficiency- off 2L NC as of yesterday. on steroids and antiviral medicine
Pulmonary: Incentive spirometry
Pain: acetaminophen or oxycodone as needed. Pain to be under control on PO medicine. Dc IV Dilaudid
Safety: Continue to reinforce assistance with all transfers.
DVT Prophylaxis: Aspirin 325 mg x 4 weeks per orthopedic protocol. ORTHO please comment if okay to switch to Lovenox subcutaneous once in rehab then resuming aspirin upon discharge.
Thank you for allowing me to care for your patient. Please contact me with any questions or concerns.

Documented by User: Octaviano Laboy MD 09/19/24 20:52
Consultation - Medical
-
Referring Provider: Dr. Syed Blanton
Chief Complaint: Ambulatory dysfunction status post hip ORIF and left humeral fracture
History of Present Illness: Patient is a 73-year-old female smoker who presented to the hospital after sustaining a fall on her patio landing on her left side. X-ray of the left shoulder revealed impacted fracture involving the left proximal
humerus and x-ray of the left hip showed intertrochanteric fracture. On 09/15/2024, she underwent internal fixation left hip with gamma nail by Dr. Workman.
Past Medical History: Active smoker, h/o Bilateral wrist fracture and right hand second finger DIP tendon injury
Procedure History: Bilateral wrist fracture repairs , right hand second finger DIP tendon injury
Family History: non contributory
Social History:
Functional Level Premorbidly: Independent with all activities , very active
Functional Level Currently: Bed mobility�max assist, transfer�mod�max assist, ambulated 2�3 sidesteps to HOB with max assist x 2 with hemiwalker and gait belt, grooming�max assist, upper extremity self-care�max assist, bed mobility�min assist,
Tobacco: Denies
Alcohol: Denies
Drug use: Denies
Lives with: Alone, has girlfriends that are not far from her
24-hour assistance available:
Number of floors: One-story home, [place]
# steps to enter: none , enters through side of house
Driving: yes
Occupation: retired
Allergies:
Allergy/AdvReac Type Severity Reaction Status Date / Time
No Known Allergies Allergy Unverified 09/14/24 12:26
Review of Systems:
Constitutional: (x) abNormal _fatigue
Eye: (x) Normal _
Ear/Nose/Throat: (x) Normal _
Respiratory: (x) abNormal _ COVID, hypoxia
Cardiovascular: (x) Normal _
Gastrointestinal: (x) Normal _
Genitourinary: (x) Normal _
Musculoskeletal: (x) abNormal _fracture of left hip and left humerus
Integumentary: (x) Normal _
Neurologic: (x) Normal _
Psychiatric: (x) Normal _
Endocrine: (x) Normal _
Hematologic/Lymphatic: (x) Normal _
Allergic/Immunologic: (x) Normal _
Medications:
Active Current Visit Medication List
Category Date Time Status
Acetaminophen [Tylenol] Med 09/15/24 08:43 Active
650 mg PO Q4HPRN PRN
Aspirin Med 09/15/24 18:00 Active
325 mg PO DAILY
Bisacodyl [Dulcolax] Med 09/14/24 19:36 Active
10 mg RECTAL [id number] PRN
Dexamethasone Sod Phosphate [Decadron] Med 09/18/24 15:00 Active
6 mg IV Q24H
Docusate Sodium [Colace] Med 09/15/24 20:00 Active
100 mg PO BID
Docusate W/Senna [Senokot-S] Med 09/14/24 19:36 Active
1 tablet PO BIDPRN PRN
Flush (0.9% Sodium Chloride) [Flush (Nss)] Med 09/14/24 16:00 Active
See Dose Instructions IV PER PROTOCOL
HYDROmorphone [Dilaudid] Med 09/14/24 19:36 Active
0.25 mg IV Q3HPRN PRN
HYDROmorphone [Dilaudid] Med 09/14/24 19:36 Active
0.5 mg IV Q4HPRN PRN
HYDROmorphone [Dilaudid] Med 09/14/24 19:15 Active
1 mg IV Q4HPRN PRN
Mag Hydrox/Al Hydrox/Simeth [Maalox] Med 09/15/24 08:43 Active
30 ml PO Q4HPRN PRN
Ondansetron Injectable [Zofran] Med 09/14/24 19:36 Active
4 mg IV Q6HPRN PRN
Oxycodone [Roxicodone] Med 09/15/24 08:43 Active
10 mg PO Q4HPRN PRN
Oxycodone [Roxicodone] Med 09/15/24 08:43 Active
5 mg PO Q4HPRN PRN
Polyethylene Glycol Powder [Miralax] Med 09/14/24 19:36 Active
17 grams PO DAILYPRN PRN
Remdesivir [Veklury] 100 mg Med 09/19/24 12:00 Active
0.9% Sodium Chloride 250 ml [Nss] 230 ml
IV DAILY@1200
Sennosides [Senokot] Med 09/15/24 20:00 Active
17.2 mg PO BID
Vitals:
Temp Pulse Resp BP Pulse Ox
98.6 F 74 17 142/78 94
09/19/24 07:22 09/19/24 07:22 09/19/24 07:22 09/19/24 07:22 09/19/24 08:09
Height 5 ft 7 in
Actual Weight 44.77 kg
Body Mass Index (BMI) 15.5
Physical Exam:
General Appearance/Observation: Well-developed, well-nourished individual in no apparent distress.
Pain/Comfort Assessment: Denies at the moment
Mood/Affect: Appropriate
Integumentary/Operative Site: left hip and side of left knee
Pressure Ulcer Evaluation: absent over heels. dry, linear fissure on plantar aspect of both feet
Eyes: Conjunctiva/Lids: normal Pupils: pupils equal round and reactive to light and Accommodation
Ears/Nose/Throat: oral mucosa moist, throat clear. Lips/Teeth/Gums: normal
Cardiovascular: Heart: regular, no murmur
Pulses: dorsalis pedis 2+ bilaterally
Respiratory: Respiratory Effort/Chest Expansion: normal Auscultation: Clear to auscultation bilaterally
Gastrointestinal: abdomen not tender, no distension, normal abdominal bowel sounds
Genitourinary: No Ornelas
Extremities: Edema: None Cyanosis: None Trophic changes: None
Neurology Exam:
Orientation: Alert, Oriented to self, Time, Place
Memory: Intact
Comprehension: Intact
Two step command: Intact
Cranial Nerves:
CNII: Pupillary light reflex: Intact Visual Field: Intact
CN III, IV, : Extraocular muscles: Intact
CN V: Facial Sensation at Forehead: Intact, Maxilla: Intact, Mandible: Intact
CN VII: Facial movement: Symmetric
CN VIII: Hearing: Normal
CN IX/X: Speech & swallow: Normal, Position of Uvula: Midline
CN XI: Shoulder shrug: Symmetric
CN XII: Tongue protrusion: Midline
Sensory:
Light touch: Intact in bilateral upper and lower extremities
Reflexes:
Biceps: 2+ bilaterally
Brachioradialis: 2+ bilaterally
Triceps: 2+ bilaterally
Patellar: 4+ bilaterally, cross adductor response
Achilles: 4+ bilaterally
Babinski: Down going bilaterally
Clonus: None
Lorena: Negative bilaterally
Cerebellar: Dysmetria/Ataxia: None
Musculoskeletal: Motor: (Manual muscle scale 0-5)
Muscle SA EF WE EE FF FA HF KE DF EHL PF
Right 5 5 5 5 5 5 5 5 5 5 5
Left - NT NT NT 4 - 2 2 5 5 5
- LUE in sling.
Tone: Normal in all extremities
Range of Motion: Passively within normal limits in all extremities , LUE deferred, LLE not tested due to surgery
Lab Results:
Labs
WBC 4.2 10^3/uL (4.8-10.8) L 09/19/24 08:03
RBC 2.53 10^6/uL (4.20-5.40) L 09/19/24 08:03
Hgb 8.3 g/dL (12.0-16.0) L 09/19/24 08:03
Hct 24.6 % (37.0-47.0) L 09/19/24 08:03
MCV 97.2 fL (81.0-99.0) 09/19/24 08:03
MCH 32.8 pg (27.0-31.0) H 09/19/24 08:03
MCHC 33.7 g/dL (33.0-37.0) 09/19/24 08:03
RDW 12.4 % (11.5-14.5) 09/19/24 08:03
Plt Count 341 10^3/uL (130-400) D 09/19/24 08:03
MPV 8.8 fL (7.4-10.4) 09/19/24 08:03
Abs Immat Gran (auto) 0.0 10^3/uL (0-0.05) 09/16/24 05:55
Absolute Neuts (auto) 5.7 10^3/uL (1.4-6.5) 09/16/24 05:55
Absolute Lymphs (auto) 1.3 10^3/uL (1.2-3.4) 09/16/24 05:55
Absolute Monos (auto) 1.3 10^3/uL (0.1-0.6) H 09/16/24 05:55
Absolute Eos (auto) 0.0 10^3/uL (0-0.7) 09/16/24 05:55
Absolute Basos (auto) 0.0 10^3/uL (0-0.2) 09/16/24 05:55
Immature Gran % 0.4 % (0-0.5) 09/16/24 05:55
Neutrophils % 68.6 % (42.2-75.2) 09/16/24 05:55
Lymphocytes % 15.3 % (20.5-51.1) L 09/16/24 05:55
Monocytes % 15.5 % (1.7-9.3) H 09/16/24 05:55
Eosinophils % 0.1 % (0-6) 09/16/24 05:55
Basophils % 0.1 % (0-2) 09/16/24 05:55
Nucleated RBC % 0 % 09/16/24 05:55
Sodium 133 mmol/L (135-145) L 09/19/24 08:03
Potassium 4.6 mmol/L (3.5-5.1) 09/19/24 08:03
Chloride 99 mmol/L (98-107) 09/19/24 08:03
Carbon Dioxide 24 mmol/L (22-30) 09/19/24 08:03
BUN 25 mg/dl (7-17) H 09/19/24 08:03
Creatinine 0.5 mg/dL (0.6-1.0) L 09/19/24 08:03
Estimated Creat Clear 59 ml/min 09/19/24 08:03
eGFR > 60.00 09/19/24 08:03
Glucose 105 mg/dl (70-99) H 09/19/24 08:03
Calcium 8.1 mg/dl (8.4-10.2) L 09/19/24 08:03
Total Bilirubin 0.5 mg/dl (0.2-1.3) 09/16/24 05:55
AST 44 U/L (14-36) H 09/16/24 05:55
ALT 30 U/L (0-35) 09/16/24 05:55
Alkaline Phosphatase 59 U/L (38-126) 09/16/24 05:55
Total Protein 5.7 g/dl (6.3-8.2) L 09/16/24 05:55
Albumin 3.1 g/dl (3.5-5.0) L 09/16/24 05:55
Urine Color Yellow 09/18/24 08:10
Urine Clarity Clear (Clear) 09/18/24 08:10
Urine pH 7.0 (5.0-9.0) 09/18/24 08:10
Ur Specific [place] 1.010 (<1.030) 09/18/24 08:10
Urine Ketones Negative (Negative) 09/18/24 08:10
Ur Occult Blood Reflex 2+ (Negative) A 09/18/24 08:10
Urine Nitrite (Reflex) Negative (Negative) 09/18/24 08:10
Urine Bilirubin Negative (Negative) 09/18/24 08:10
Urine Urobilinogen Negative (Neg - 1+) 09/18/24 08:10
Leukocyte Esterase Rfl Negative (Negative) 09/18/24 08:10
Urine RBC 3-6 /HPF (0-2) A 09/18/24 08:10
Urine WBC (Reflex) 0-2 /HPF (0-5) 09/18/24 08:10
Ur Squamous Epith Cells 3-5 /LPF (Few) 09/18/24 08:10
Urine Glucose Negative (Negative) 09/18/24 08:10
Urine Albumin (Reflex) 1+ (Neg - Trace) A 09/18/24 08:10
SARS-CoV-2 Antigen Positive (Negative) A 09/17/24 17:21
Blood Type A POS 09/14/24 16:23
Blood Type Confirm A POS 09/14/24 17:09
Antibody Screen Negative (Negative) 09/14/24 16:23
Diagnostic Results: as per HPI
Assessment: 73-year-old female smoker with left femur and humeral fractures after fall s/p left hip ORIF and left shoulder sling with ambulatory and ADL dysfunction
Plan
PM&R PT/OT to increase independence with ADLs, improve balance, coordination, endurance, strength, mobility, community reintegration, decreased burden of care on others and family education.
Ambulatory dysfunction/status post ORIF of left hip: PT/OT
Left femur fracture sustained after slipping on black ice. s/p ORIF on 09/[address] Workman
Continue WBAT LLE with walker/assistance
Dressings to remain left thigh 7-10 days
Daisha out in 2 weeks (rehab or office)
Left humeral fracture:
Sling immobilizer to remain LUE. NWB/No lifting LUE
Outpatient Ortho follow-up in 10-14 days for xrays of the shoulder
-Nonweightbearing
-Shoulder immobilizer and ice
Hyponatremia: likely from +COVID status, pain from fractures. Consider fluid restriction if lower in AM
Acute COVID-19/Acute hypoxic respiratory insufficiency- on 2L NC as needed
CXR clear; can repeat if clinical status changes
given symptomatic SOB, hypoxia; started on IV Steroids (ok with ortho service) + Remdesivir
Tylenol for fevers
Anemia: Likely multifactorial. Continue to monitor.
Psych: Psychology consult. Monitor mood, adjust medications as needed.
Skin: monitor for pressure sores/rashes/lesions.
Pain: acetaminophen or oxycodone as needed. IV Dilaudid 1 mg every 4 as needed
Bowel: Colace and Senna, PRN bisacodyl. MiraLAX
Bladder: Time void, PVRs, PRN straight cath.
Tobacco Abuse: Smoking cessation counseling. Need to find out why smoking whether it is nicotine withdrawal, habit, or oral fixation.
GI Prophylaxis: Pantoprazole
DVT Prophylaxis: Aspirin 325 mg x 4 weeks per orthopedic protocol
Pulmonary: Incentive spirometry
Safety: Continue to reinforce assistance with all transfers.
Code Status: Full code
Dispo (date/plan/equipment needs): Home with family care. Social history reviewed.
Functional and Medical Goals: Modified Independent with ADL�s, ambulation, transfers
Discharge Destination: Acute inpatient rehabilitation
Attending Statement:
I saw and examined the patient today. Reviewed care plan with patient, therapy, nursing, and physician assistant tennis coach. I agree with the above subjective and physical exam, and plan as documented by LAURA Alberto with adjustments made as necessary.
Summary of recommendations: Patient with ambulatory dysfunction and ADL impairment due to left upper and left lower extremity fractures would benefit from PT/OT to increase independence with ADLs, improve balance, coordination, endurance, strength,
mobility, community reintegration.
Left femur fracture s/p ORIF on 09/15
Continue WBAT LLE with walker/assistance somewhat cool
Left humeral fracture:
Sling immobilizer to remain LUE. NWB/No lifting LUE
Outpatient Ortho follow-up in 10-14 days for xrays of the shoulder
-Shoulder immobilizer and ice
Acute COVID-19/Acute hypoxic respiratory insufficiency- off 2L NC as of yesterday. on steroids and antiviral medicine
Pulmonary: Incentive spirometry
Pain: acetaminophen or oxycodone as needed. Pain to be under control on PO medicine. Stop IV Dilaudid
DVT Prophylaxis: Aspirin 325 mg x 4 weeks per orthopedic protocol. ORTHO please comment if okay to switch to Lovenox subcutaneous once in rehab then resuming aspirin upon discharge.
Thank you for allowing me to care for your patient. Please contact me with any questions or concerns.
[2024-09-19] MEDS: ROXICODONE 10 MG PO (17:55)
[2024-09-19 23:20] VITALS: BP 122/80
[2024-09-20] MEDS: ROXICODONE 10 MG PO ×2 (05:06→15:29)
[2024-09-20 06:14] LABS: Hematocrit 23.8 % (37.0-47.0); Hemoglobin 8.2 g/dL (12.0-16.0); Mean Corp Hgb Conc. 34.5 g/dL (33.0-37.0); Mean Corpuscular Hgb 33.5 pg (27.0-31.0); Mean Corpuscular Volume 97.1 fL (81.0-99.0); Mean Platelet Volume 8.4 fL (7.4-10.4); Platelet Count 371 10^3/uL (130-400); Red Blood Cell Count 2.45 10^6/uL (4.20-5.40); Red Cell Dist. Width 12.4 % (11.5-14.5); White Blood Cell Count 4.7 10^3/uL (4.8-10.8)
[2024-09-20 06:42] LABS: Blood Urea Nitrogen 32 mg/dl (7-17); Calcium 8.2 mg/dl (8.4-10.2); Carbon Dioxide 25 mmol/L (22-30); Chloride 100 mmol/L (98-107); Estimated Creatinine Clearance 59 ml/min; Glucose 102 mg/dl (70-99); Potassium 4.5 mmol/L (3.5-5.1); Sodium 132 mmol/L (135-145); eGFR > 60.00
[2024-09-20 07:28] VITALS: BP 165/78
[2024-09-20] MEDS: ASPIRIN 325 MG PO (09:09)
[2024-09-20] MEDS: COLACE PO ×3 (09:09→20:41)
[2024-09-20] MEDS: SENOKOT PO ×3 (09:09→20:41)
[2024-09-20] MEDS: TYLENOL 650 MG PO (09:18)
[2024-09-20 09:34] VITALS: BP 135/54
--- NOTE | 2024-09-20 11:33 | W.PN.HOSP.TC ---
Today's Communication/Plan
-
Monitor vital signs
see plan
Continue with steroid, remdesivir
Continue to monitor respiratory status
Monitor hemoglobin
PT/OT
Assessment / Plan
Assessment / Plan
Exam:
Assessment:
Acute hypoxic respiratory insufficiency on 2L NC
Acute COVID-19 infection
- given symptomatic SOB, hypoxia; will cw IV Steroids (ok with ortho service) + Remdesivir. Wean oxygen as tolerated. Chest x-ray concerning for COPD.
still with some sob, cw covid treatment
- Tylenol for fevers
Left femur fracture sustained after slipping on black ice
-Internal fixation left hip with gamma nail on 09/15
-Comanagement orthopedic
-Pain management per orthopedics
Dressing to remain left thigh 7-10 days.
- Daisha out in 2 weeks (rehab or office).
- Recommend outpatient Ortho follow-up in 10-14 days for x-rays of the shoulder.
Continue WBAT LLE on (platform) walker/assistance.
- Sling immobilizer to remain LUE. NWB/No lifting LUE.
-DVT prophylaxis per orthopedic
-Incentive spirometer
-Ankle pumps
-PT/OT evaluated; acute rehab consulted
Left humeral fracture
-Keep in sling
-Outpatient follow-up with orthopedic
-Nonweightbearing
-Repeat x-ray in 2 weeks
-Shoulder immobilizer and ice
Smoker
-NRT
-Cessation advised
Normocytic anemia, trending down 7.6 continue to monitor hemodynamically stable
-Follow hemoglobin trend
-If less than 7 transfuse or symptomatic
-Likely chronic
-Age-appropriate cancer screening as outpatient
-Outpatient iron studies
Leukocytosis�resolved
-Likely reactive in the setting of fracture/acute inflammatory
Underweight nutritional status
Hyponatremia, mild
- monitor - likely from +COVID status, pain from fractures
- consider fluid restriction if lower in AM
DVT ppx: per orthopedics, aspirin
Code: Full
General: No respiratory distress
HEENT: Normocephalic and Atraumatic
Respiratory: Decreased Breath Sounds; Negative Wheezes
Cardiac: Regular Rhythm and S1/S2
GI: Nondistended
Genito-urinary: No Costovertebral Tender
Neuro: AO x 3
Psych: Calm
Anticipated Discharge: 24 - 48 hours
Subjective/Interval History
-
Date of Service: September 20, 2024
Has some pain
Objective Data
-
Labs:
Laboratory Results
09/20/24
05:55
WBC 4.7 L
Hgb 8.2 L
Hct 23.8 L
Plt Count 371
Sodium 132 L
Potassium 4.5
Chloride 100
Carbon Dioxide 25
BUN 32 H
Creatinine 0.6
Glucose 102 H
Calcium 8.2 L
Vital Signs:
Vital Signs
Temp Pulse Resp BP Pulse Ox
98.6 F 79 17 135/54 95
09/20/24 07:28 09/20/24 07:28 09/20/24 07:28 09/20/24 09:34 09/20/24 07:28
I&O
09/19/24 09/20/24 09/21/24
06:59 06:59 06:59
Intake Total 1330 / 1330 1570 / 1570
Balance 1330 / 1330 1570 / 1570
[2024-09-20] MEDS: VEKLURY 250 MG IV (11:43)
--- NOTE | 2024-09-20 14:31 | CM ---
Per Srinivasan tentative bed available tomorrow after 1pm. CM updated physician and pending assessment, plan is for [facility] tomorrow. CM called to patient but phone consistently busy on extension, patient phone number not answered. CM updated nursing about
option. CM will continue to follow for discharge planning needs.
Plan; [facility] possible tomorrow.
[2024-09-20] MEDS: DECADRON 6 MG IV (15:29)
[2024-09-20 15:51] VITALS: BP 148/69
[2024-09-20] MEDS: ROXICODONE 5 MG PO (20:42)
[2024-09-20 23:30] VITALS: BP 132/74
[2024-09-21] MEDS: TYLENOL 650 MG PO (05:48)
[2024-09-21 06:17] LABS: Hematocrit 26.9 % (37.0-47.0); Hemoglobin 8.7 g/dL (12.0-16.0); Mean Corp Hgb Conc. 32.3 g/dL (33.0-37.0); Mean Corpuscular Volume 98.9 fL (81.0-99.0); Mean Platelet Volume 8.4 fL (7.4-10.4); Platelet Count 459 10^3/uL (130-400); Red Blood Cell Count 2.72 10^6/uL (4.20-5.40); Red Cell Dist. Width 12.3 % (11.5-14.5); White Blood Cell Count 5.1 10^3/uL (4.8-10.8)
[2024-09-21 06:33] LABS: Blood Urea Nitrogen 30 mg/dl (7-17); Calcium 8.2 mg/dl (8.4-10.2); Carbon Dioxide 27 mmol/L (22-30); Chloride 100 mmol/L (98-107); Estimated Creatinine Clearance 59 ml/min; Glucose 87 mg/dl (70-99); Potassium 4.2 mmol/L (3.5-5.1); Sodium 133 mmol/L (135-145); eGFR > 60.00
[2024-09-21 07:39] VITALS: BP 124/83
[2024-09-21] MEDS: COLACE PO (07:57)
[2024-09-21] MEDS: SENOKOT PO (07:57)
[2024-09-21] MEDS: ASPIRIN 325 MG PO (07:59)
--- NOTE | 2024-09-21 10:02 | W.PN.HOSP.TC ---
Today's Communication/Plan
-
Monitor vital signs see plan
Follow fever curve
Continue with Decadron
DC further remdesivir if remains on room air and afebrile
Hopeful [facility] re[facility] tomorrow
Assessment / Plan
Assessment / Plan
Exam:
Assessment:
Acute hypoxic respiratory insufficiency on 2L NC
Acute COVID-19 infection
- given symptomatic SOB, hypoxia; will cw Decadron + Remdesivir. Wean oxygen as tolerated. can stop remdesivir if remains on room air. Chest x-ray concerning for COPD.
still with some sob, cw covid treatment
- Tylenol for temp>101; temp of 100.3 yesterday, most rehab unable to accept today and will accept tomorrow if afebrile. Patient did not get any Tylenol until this morning and prior to getting Tylenol temp was 97.5. Unclear if 100.3 temp was
accurate.
Left femur fracture sustained after slipping on black ice
-Internal fixation left hip with gamma nail on 09/15
-Comanagement orthopedic
-Pain management per orthopedics
Dressing to remain left thigh 7-10 days.
- Daisha out in 2 weeks (rehab or office).
- Recommend outpatient Ortho follow-up in 10-14 days for x-rays of the shoulder.
Continue WBAT LLE on (platform) walker/assistance.
- Sling immobilizer to remain LUE. NWB/No lifting LUE.
-DVT prophylaxis per orthopedic
-Incentive spirometer
-Ankle pumps
-PT/OT evaluated; acute rehab consulted
Left humeral fracture
-Keep in sling
-Outpatient follow-up with orthopedic
-Nonweightbearing
-Repeat x-ray in 2 weeks
-Shoulder immobilizer and ice
Smoker
-NRT
-Cessation advised
Normocytic anemia
-Follow hemoglobin trend
-If less than 7 transfuse or symptomatic
-Likely chronic
-Age-appropriate cancer screening as outpatient
-Outpatient iron studies
Leukocytosis�resolved
-Likely reactive in the setting of fracture/acute inflammatory
Underweight nutritional status
Hyponatremia, mild
- monitor - likely from +COVID status, pain from fractures
- consider fluid restriction if remains lower
DVT ppx: per orthopedics, aspirin
Code: Full
General: No respiratory distress
HEENT: Normocephalic and Atraumatic
Respiratory: Decreased Breath Sounds; Negative Wheezes
Cardiac: Regular Rhythm and S1/S2
GI: Nondistended
Genito-urinary: No Costovertebral Tender
Neuro: AO x 3
Psych: Calm
Anticipated Discharge: Within 24 hours
Subjective/Interval History
-
Date of Service: September 21, 2024
Denies nausea
Objective Data
-
Labs:
Laboratory Results
09/21/24
05:44
WBC 5.1
Hgb 8.7 L
Hct 26.9 L
Plt Count 459 H D
Sodium 133 L
Potassium 4.2
Chloride 100
Carbon Dioxide 27
BUN 30 H
Creatinine 0.6
Glucose 87
Calcium 8.2 L
Vital Signs:
Vital Signs
Temp Pulse Resp BP Pulse Ox
97.9 F 72 16 124/83 95
09/21/24 07:39 09/21/24 07:39 09/21/24 07:39 09/21/24 07:39 09/21/24 07:39
I&O
09/20/24 09/21/24 09/22/24
06:59 06:59 06:59
Intake Total 1570 / 1570 1560 / 1560
Balance 1570 / 1570 1560 / 1560
--- NOTE | 2024-09-21 11:01 | CM ---
Addendum entered by Brionna Wright 09/21/24 12:00:
Patient spoke with CM via phone, will email IMM [email or web address]. Patient eager to transfer to [facility].
Original Note:
[facility] reviewed with CM concern for fever- low grade last night. New plan is for patient to go off of tylenol- recommendation communicated to physician and patient for transfer to [facility] tomorrow am pending no further fever issues. CM will continue to
follow for discharge planning needs.
PLan transfer to [facility] tomorrow
[2024-09-21] MEDS: VEKLURY 250 MG IV (11:38)
[2024-09-21] MEDS: ROXICODONE 5 MG PO ×2 (11:38→20:46)
[2024-09-21 15:28] VITALS: BP 139/79
[2024-09-21] MEDS: DECADRON 6 MG PO (15:33)
[2024-09-21] MEDS: SENOKOT 17.2 MG PO (20:37)
[2024-09-21] MEDS: COLACE 100 MG PO (20:37)
[2024-09-21 23:20] VITALS: BP 132/81
[2024-09-22 06:26] LABS: Hematocrit 25.6 % (37.0-47.0); Hemoglobin 8.7 g/dL (12.0-16.0); Mean Corpuscular Hgb 33.2 pg (27.0-31.0); Mean Corpuscular Volume 97.7 fL (81.0-99.0); Mean Platelet Volume 8.4 fL (7.4-10.4); Platelet Count 475 10^3/uL (130-400); Red Blood Cell Count 2.62 10^6/uL (4.20-5.40); Red Cell Dist. Width 12.3 % (11.5-14.5); White Blood Cell Count 6.3 10^3/uL (4.8-10.8)
[2024-09-22 06:57] LABS: Blood Urea Nitrogen 31 mg/dl (7-17); Calcium 8.2 mg/dl (8.4-10.2); Carbon Dioxide 25 mmol/L (22-30); Chloride 103 mmol/L (98-107); Estimated Creatinine Clearance 59 ml/min; Glucose 109 mg/dl (70-99); Potassium 4.8 mmol/L (3.5-5.1); Sodium 132 mmol/L (135-145); eGFR > 60.00
--- NOTE | 2024-09-22 07:24 | W.PN.HOSP.TC ---
Today's Communication/Plan
-
Discharge today
Assessment / Plan
Assessment / Plan
Physical Exam
General: No respiratory distress. Not in acute distress.
HEENT: Normocephalic and Atraumatic
Respiratory: Decreased Breath Sounds Bilaterally. ON ROOM AIR.
Cardiac: Regular Rhythm and S1/S2
GI: Nondistended. Nontender. Positive bowel sounds.
Neuro: AAO x 3
Psych: Calm
Assessment/Plan
Acute hypoxic respiratory insufficiency on 2L NC - RESOLVED (NOW ON ROOM AIR)
Acute COVID-19 infection with Associated Fever
- given symptomatic SOB, hypoxia; patient was given Decadron + Remdesivir. Chest x-ray concerning for COPD.
- Still with some sob, cw covid treatment
- Patient has been afebrile for more than 24 hours now, without the use of Tylenol
Left femur fracture sustained after slipping on black ice
-Internal fixation left hip with gamma nail on 09/15
-Comanagement orthopedic
-Pain management per orthopedics -- will send PRN Oxycodone 5 mg dose on discharge
Dressing to remain left thigh 7-10 days.
- Daisha out in 2 weeks (rehab or office).
- Recommend outpatient Ortho follow-up in 10-14 days for x-rays of the shoulder.
Continue WBAT LLE on (platform) walker/assistance.
- Sling immobilizer to remain LUE. NWB/No lifting LUE.
-DVT prophylaxis per orthopedic: ASA 325mg daily x 4 weeks.
-Incentive spirometer
-Ankle pumps
-PT/OT evaluated; acute rehab consulted
Left humeral fracture
-Keep in sling
-Outpatient follow-up with orthopedic
-Sling immobilizer to remain LUE. NWB/No lifting LUE.
-Repeat x-ray by 09/28 to 10/01
-Shoulder immobilizer and ice
Smoker
-NRT
-Cessation advised
Normocytic anemia
-Follow hemoglobin trend
-If less than 7 transfuse or symptomatic
-Likely chronic
-Age-appropriate cancer screening as outpatient
-Outpatient iron studies
Leukocytosis�resolved
-Likely reactive in the setting of fracture/acute inflammatory
Underweight nutritional status
Hyponatremia, mild
- monitor - likely from +COVID status, pain from fractures
- consider fluid restriction if remains lower
DVT ppx: per orthopedics, aspirin
Code: Full
More than 30 minutes spent in discharge including
Final examination of the patient
Summarizing hospital stay
Instructions for continuing care to all relevant caregivers
Preparation of discharge records, prescriptions, and referral forms
Total time spent (in minutes): 40
Anticipated Discharge: Today
Subjective/Interval History
-
Date of Service: September 22, 2024
Patient was seen and examined. She said she is doing okay, still has some SOB, but no new complaints.
Objective Data
-
Labs:
Laboratory Results
09/22/24
06:07
WBC 6.3
Hgb 8.7 L
Hct 25.6 L
Plt Count 475 H
Sodium 132 L
Potassium 4.8
Chloride 103
Carbon Dioxide 25
BUN 31 H
Creatinine 0.5 L
Glucose 109 H
Calcium 8.2 L
Vital Signs:
Vital Signs
Temp Pulse Resp BP Pulse Ox
97.6 F 83 18 132/81 94
09/21/24 23:20 09/21/24 23:20 09/21/24 23:20 09/21/24 23:20 09/21/24 23:20
I&O
09/21/24 09/22/24 09/23/24
06:59 06:59 06:59
Intake Total 1560 / 1560 720 / 720 240 / 240
Balance 1560 / 1560 720 / 720 240 / 240
[2024-09-22 07:59] VITALS: BP 137/82
[2024-09-22] MEDS: SENOKOT 17.2 MG PO (08:39)
[2024-09-22] MEDS: COLACE 100 MG PO (08:39)
[2024-09-22] MEDS: ASPIRIN 325 MG PO (08:39)
[2024-09-22] MEDS: DECADRON 6 MG PO (08:45)
[2024-09-22] MEDS: VEKLURY 250 MG IV (12:17)
--- NOTE | 2024-09-22 13:44 | CM ---
Addendum entered by TIMBO Her 09/22/24 17:12:
Consult done (PN&R) previously. Dr. Laboy stated that patient can transfer. RN updated. # Provided for report. 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 Attending aware of transfer. Discharge order is in.
Original Note:
Received notification from attending of impending d/c (pending) PN&R. Reviewed discharge with patient. She is anxious to transfer. Reviewed IMM. It is on chart in anticipation of her transferring imminently.
Plan: Case management will continue to follow and assist with discharge planning. Srinivasan when stable.
[2024-09-22] MEDS: TYLENOL 650 MG PO (14:04)
[2024-09-22 15:04] VITALS: BP 148/94; BP 163/98; PULSE 88; O2SAT 94
[2024-09-22 15:12] VITALS: BP 148/94
--- NOTE | 2024-09-22 17:41 | PTCARENOTE ---
Report called to Srinivasan. Pt will be transferred after her dinner.
== END 2024-09-22 18:21 | DRG 480 ==
LOC: 3 WEST ACU 14:36
PROVIDERS: Clinical Nurse Specialist Family Health; Emergency Medicine; Hospitalist; Internal Medicine; ADMITTING PHYSICIAN Internal Medicine; ATTENDING PHYSICIAN Hospitalist; CONSULT PHYSICIAN Physical Medicine & Rehabilitation; EMERGENCY PHYSICIAN Emergency Medicine; FAMILY PHYSICIAN Family Medicine; OTHER PHYSICIAN Orthopaedic Surgery
PROC: 0QS704Z Reposition Left Upper Femur with Internal Fixation Device, Open Approach (ICD-10-PCS; 2024-09-14)
DX: S72.142A Displaced intertrochanteric fracture of left femur, initial encounter for closed fracture (principal); U07.1 COVID-19; S42.292A Other displaced fracture of upper end of left humerus, initial encounter for closed fracture; E87.1 Hypo-osmolality and hyponatremia; Z68.1 Body mass index [BMI] 19.9 or less, adult; W00.0XXA Fall on same level due to ice and snow, initial encounter; Y93.01 Activity, walking, marching and hiking; Y92.008 Other place in unspecified non-institutional (private) residence as the place of occurrence of the external cause; R63.6 Underweight; F17.210 Nicotine dependence, cigarettes, uncomplicated; D64.9 Anemia, unspecified; R09.02 Hypoxemia; R06.89 Other abnormalities of breathing; D72.829 Elevated white blood cell count, unspecified; M85.80 Other specified disorders of bone density and structure, unspecified site; Z60.2 Problems related to living alone
CPT/HCPCS: 71045; 73030; 73200; 73502; 76000; 80048; 80053; 81003; 81015; 85025; 85027; 86850; 86900; 86901; 87040; 87502; 87811; 93005; 96374; 97116; 97163; 97167; 97530; 97535; 99285; 99406; C1713; C1769; J0248